=== PATIENT | male | born 1945 | race Caucasian/White ===

== ENCOUNTER → 2018-10-28 10:55 | Outpatient (CLI) | payer MEDICARE, OTHER, SELFPAY ==
--- NOTE | 2018-10-30 12:14 | PM.PFT.1 ---
Pulmonary Function Test Referral & Results Date Patient Seen: 10/28/18 Requesting provider: Anais Velasquez Results: The spirometry demonstrates an FVC of 3.47 L which is 60% of predicted. The FEV1 was measured at 2.81 L which is 66% of predicted. The FEV1/FVC ratio was 81 which is 111% of predicted. Following the administration of bronchodilator there was a 37% improvement in FEF 25-75%. Lung volumes show an SVC of 3.68 L which is 64% of predicted. The diffusing capacity was measured at 24.55 which is 56% of predicted. No hemoglobin value was provided, so no correction for potential anemia could be made, if appropriate. The maximum voluntary ventilation was normal Interpretation: This study demonstrates some element of obstructive lung disease based on reduction FEV1 although FEV1/FVC ratio remains normal. There is limited evidence of benefit following bronchodilator, particularly small airway flow based on improvement in FEF 25-75% There is also moderate restrictive lung disease based on reduction SVC There is also a significant reduction in diffusing capacity suggesting significant disease at the capillary alveolar level Overall this is consistent with an interstitial type lung disease with significant restriction and reduced DLCO
== END ==
PROVIDERS: PCP Family Medicine; Visit Provider Internal Medicine
DX: R06.09 Other forms of dyspnea (principal)
CPT/HCPCS: 94060; 94729

== ENCOUNTER → 2020-08-05 11:58 | Outpatient (CLI) | payer MEDICARE, OTHER, SELFPAY ==
[2020-08-05 12:49] LABS: COVID19 -Nasal RAPID Negative (Negative)
== END ==
PROVIDERS: PCP Family Medicine; Visit Provider Physician Assistant
DX: Z01.812 Encounter for preprocedural laboratory examination (principal); Z20.822 Contact with and (suspected) exposure to COVID-19
CPT/HCPCS: 87635

== ENCOUNTER 2020-08-07 06:38 | Inpatient (IN) | payer MEDICARE, OTHER, SELFPAY ==
[2020-07-31 07:23] VITALS: BMI 40.9
[2020-08-07] VITALS (18 sets, daily range): BP systolic 81–158; BP diastolic 58–99; PULSE 72–122; RESP 8–18; TEMP 35.7–36.6; O2SAT 90–99; BMI 42.0
--- NOTE | 2020-08-07 | DI.RAD.S_ITS ---
PROCEDURE: XR LUMBAR SPINE 2-3V INDICATIONS: L3-4, L4-5 TLIF TECHNIQUE: 2 views of the lumbar spine were acquired. COMPARISON: None. FINDINGS: Bones: Spot fluoroscopic intraoperative images demonstrating L3-L4 and L4-L5 posterior spinal fixation with interbody cage grafts. Hardware appears grossly intact. There is expected alignment. Soft tissues: Overlying bowel gas pattern is normal. No suspicious soft tissue calcifications. IMPRESSION: Expected intraoperative appearance as above Dictated by: Olvin Villela M.D. on 08/07/2020 at 14:28 Approved by: Olvin Villela M.D. on 08/07/2020 at 14:28
[2020-08-07] MEDS: LACTATED RINGERS 1,000 ML 42 ML IV ×2 (07:39→11:28)
--- NOTE | 2020-08-07 07:42 | PM.PREOP ---
Pre-operative Note COVID-19 COVID-19 status: Negative Result date/Date tested (Pos, Neg/Pending): 08/05/20 Interval Note History & Physical reviewed/Exam performed by Physician: Yes Changes to H&P: No
[2020-08-07] MEDS: CEFAZOLIN 1 GM VIAL 2 GM IV ×3 (08:00→23:54)
--- NOTE | 2020-08-07 08:28 | SUR.OPER ---
Prone on spine table, head in foam head support, padded chest and pelvic supports, gel pad at knees, lower legs supported by pillows; nipples, genitalia and toes free of pressure, arms secured on foam padded arm boards at <90 degrees abduction. Tape over blanket at thigh secured to table.Multiple gels pads to patients flanks and legs to reduce pressure. 1.5 inch skin tear to right groin noted after patient positioned in prone position. Dr. Henry aware.ABD dressing to area.
[2020-08-07] MEDS: BUPIVACAINE LIPOSOME 266 MG/20 ML VIAL INJ (08:37)
[2020-08-07] MEDS: BUPIVACAINE 0.25% (PF) VIAL 30 ML INJ (08:37)
[2020-08-07] MEDS: ACETAMINOPHEN IV 1,000 MG/100 ML VIAL 400 MG IV (09:45)
--- NOTE | 2020-08-07 13:40 | P.OP_ITS ---
Operative Date/Time/Diagnoses Date of procedure: 08/07/20 Time of procedure: 08:05 Pre-op diagnosis: 1. Spinal stenosis 2. Neurogenic claudication Post-op diagnosis: same Procedure & Clinicians Procedure: 1. L3-4, L4-5 Postero-lateral and posterior interbody fusion 2. L3-4, L4-5 interbody cage placement. 3. L3-4, L4-5 decompressive laminectomy with bilateral facetecomies 4. L3-4, L4-5 Posterior segmental instrumentation 5. Willis of bone marrow from iliac crest 6. Utilization of microsurgical technique and operating microscope Same procedure as scheduled: Yes Indications: Patient has been having chronic back pain and worsening lumbar radiculopathy. Patient failed multiple conservative management with worsening pain weakness and numbness in her lower extremity. Patient has been having difficulty performing activity of daily living. After discussing risks benefits of treatment options, patient elected proceed with surgery. Surgeon: Cassidy Henry Hull Outfit Supervisor: Polo Holden Click Yes if Unassisted: No Operative Notes Closure Type: primary Specimen(s): none sent Prosthetic devices, grafts, tissues, transplants, or devices: Globus revolve s crews, Rise cages Applied: catheter Estimated Blood Loss (mL): 150 Blood products transfused: none Procedure in detail: Patient was seen in the preoperative area. Risks and benefits of the surgery was discussed with the patient. Informed consent was obtained from the patient and placed in the chart. Surgical site was marked. Patient was taken to the operative room. General anesthesia was administered. Prophylactic antibiotic was given to the patient less than 30 min before the incision was made. Patient was placed into a prone position on the Anthony table. Patient's back was then prepped and draped in the sterile fashion. Time- out was performed at this time. Using AP and lateral C-arm imaging the interval between L3-4, L4-5 was identified and marked on patient's back. A 2 inch incision 2 in from midline was made on the left side first. The fascia was incised in line with skin incision. Globus MARS retractors was placed inside the incision and docked onto the L3 and L4 lamina. Using microsurgical technique and operating microscope, a L3 and L4 laminectomy and L3-4, L4-5 facetectomy was performed using a Kerrison rongeur. The patient was found have severe central and neural foramen stenosis which was fully decompressed off after the laminectomy and facetectomy was completed at both levels. The disc space at L3-4, L4-5 was identified. And a total diskectomy was performed at L3-4, L4-5 level. The endplates were decorticated using a rasp and shaver. The total diskectomy and decortication was performed at L3-4, L4-5 level in order to to accomplish a L3-4, L4-5 fusion. The local bone from the laminectomy and facetectomy was saved for local bone grafting. After the total diskectomy and decortication was completed, Trifecta bone graft material was combined with local bone that was harvested earlier. At this time, a separate skin is incision was made over the iliac crest. A Jamshidi needle was inserted into the iliac crest through a separate skin incision. 5 cc of bone marrow aspiration was obtained through the separate skin incision using a Jamshidi needle from the iliac crest. The bone marrow aspiration was combined with local bone and the Trifecta bone grafting material. The bone grafting material was placed into the L3-4, L4-5 interbody space along with two cages, one expandable cage at each level. The cages were expanded to their maximum height using the torque limiting screwdriver. At this time a mirror image incision was made on the right side. The fascia was incised in line with the skin incision. Globus MARS retractor was inserted and docked onto the L3-4, L4-5 posterolateral gutter. Using the power drill, posterior-lateral decortication was performed at L3-4, L4-5 level until bleeding cortical bone was identified. The remaining bone grafting material was placed into the L3-4, L4-5 posterior lateral gutter he order to accomplish posterolateral fusion at the L3-4, L4-5 levels. Using the double C-arm technique, pedicle screws were placed into the L3, L4, L5 pedicles bilaterally. This was done by placing the Jamshidi needle into the pedicles, then placing the guidewires over the Jamshidi needle, and finally placing the cannulated screws over the guidewires bilaterally. After the pedicle screws were placed, 2 titanium rods was locked into the heads of the pedicle screws using locking caps and torque limiting screwdriver. Total 6 pedicles screws were placed. After all the hardware was placed, and confirmed with AP and lateral C-arm imaging, the wound was then irrigated with sterile normal saline and packed with Ray-Andrzej gauze for 3 min to accomplish hemostasis. After the gauze was removed the deep fascia was closed with #1 Vicryl suture. The subcutaneous layer was closed with 2-0 Vicryl. The skin was closed with skin wilner. Patient tolerated the procedure well. There were no complications. Complications: none Post-operative Condition: stable Disposition: PACU Plan for aftercare: Admit to inpatient hospital
--- NOTE | 2020-08-07 13:52 | SUR.PHASEI ---
Received to PACU after general anesthesia. Oral airway in place. No further airway assistance required. Report from ANDRES Burleson and Dr Hines.
[2020-08-07] MEDS: SODIUM CHLORIDE 0.9% 1,000 ML 100 ML IV (14:57)
--- NOTE | 2020-08-07 15:07 | PC.NURSE ---
Pt to floor from PACU @ 1445; very sleepy, but A&O X 4; c/m/s positive to BLLEs; foot scds and CPAP active; RA=94%; mild hypotension 96/60; IV fluids infusing; call light within reach
--- NOTE | 2020-08-07 15:45 | PT-IP ANOTE ---
Received PT orders and reviewed chart. Per RN, pt has been quite groggy and hypotensive since arriving on the floor. Pt not yet ready for PT assessment. Will follow up morning of 08/08.
[2020-08-07] MEDS: METFORMIN 850 MG TABLET PO ×2 (18:16→22:31)
[2020-08-07] MEDS: INSULIN LISPRO 100 UNIT/ML 3ML VIAL SUBCUT ×2 (18:17→21:49)
[2020-08-07] MEDS: ATORVASTATIN 20 MG TABLET 80 MG PO (18:29)
[2020-08-07] MEDS: DOCUSATE 100 MG CAPSULE PO (21:16)
[2020-08-07] MEDS: SENNOSIDES 8.6 MG TABLET 17.2 MG PO (21:17)
[2020-08-07] MEDS: FINASTERIDE 5 MG TABLET PO (21:17)
[2020-08-07] MEDS: METOPROLOL ER 50 MG TABLET PO (21:17)
[2020-08-07] MEDS: INSULIN GLARGINE 100 UNIT/ML 3ML PEN 51 UNIT SUBCUT (21:48)
[2020-08-08] VITALS (7 sets, daily range): BP systolic 99–127; BP diastolic 55–72; PULSE 79–106; RESP 16–26; TEMP 36.3–37.7; O2SAT 95–98
[2020-08-08] MEDS: SODIUM CHLORIDE 0.9% 1,000 ML 100 ML IV (01:08)
[2020-08-08] MEDS: hydrOXYzine pamoate 25 MG CAPSULE PO (01:49)
--- NOTE | 2020-08-08 01:52 | PC.NURSE ---
patient is alert and oriented. [place] but has no hearing aids. Breath sounds CTA with RA sat of 97%; gets SOB with exertion which he states is his normal. Using home CPAP for sleep. HRR slightly tachy at 101 bpm. Denies nausea. BT present but not passing flatus as yet. Indwelling catheter is patent; urine is clear, yellow. Is sitting up in chair and able to move self. Stands up with 1-2 assist + walker. Dressings to back intact with bright red drainage leaking from right dressing; reinforced. Numbness to left anterior/lateral thigh. Does have chronic neuropathy in bilateral LE toe to knee and bilateral hands. Wearing bilateral foot SCD's. Denies pain. Fall risk score is high and chair alarm is on.
[2020-08-08 06:26] LABS: Hematocrit 33.1 % (41-53); Hemoglobin 11.1 g/dL (13.5-17.5)
[2020-08-08] MEDS: INSULIN GLARGINE 100 UNIT/ML 3ML PEN 51 UNIT SUBCUT ×2 (07:52→20:33)
[2020-08-08] MEDS: INSULIN LISPRO 100 UNIT/ML 3ML VIAL SUBCUT ×4 (07:53→20:34)
[2020-08-08] MEDS: LORATADINE 10 MG TABLET PO (08:20)
[2020-08-08] MEDS: METOPROLOL ER 50 MG TABLET PO ×2 (08:20→20:32)
[2020-08-08] MEDS: DOCUSATE 100 MG CAPSULE PO ×2 (08:20→20:32)
[2020-08-08] MEDS: SPIRONOLACTONE 25 MG TABLET 12.5 MG PO (08:20)
[2020-08-08] MEDS: GLIMEPIRIDE 2 MG TABLET 4 MG PO (08:20)
[2020-08-08] MEDS: METFORMIN 850 MG TABLET PO ×3 (08:20→20:32)
[2020-08-08] MEDS: LOSARTAN 50 MG TABLET PO (08:20)
--- NOTE | 2020-08-08 09:16 | PC.NURSE ---
Assess- Patient is alert and oriented x3, he is working with physical therapy now and is going to need assistance of two staff members to help get him out of the chair. He has a dressing to his lower back that is intact, some bloody drainage. [place] present and patient is putting out yellow urine. He states that he is having some numbness to his r.upper thigh and this is new to him after surgery, patient is diabetic and has neuropathy present. VSS and he denies pain in his lower back. Patient has hemosydian staining to his bilater lower extremities with 1+edema, legs are shiny and puffy. Patient given his dieuretic medication.
--- NOTE | 2020-08-08 09:44 | PT.IIE ---
Current Diagnoses Morbid (severe) obesity due to excess calories (08/07/20) Spinal stenosis, lumbar region with neurogenic claudication (08/07/20) Surgery Performed Operation Date: 08/07/20 07:45 Actual Procedures p L3-4, L4-5, L5-S1 TLIF w. posterior instrumentation(Not Applicable) - Cassidy Henry MD Surgical History (Last Updated 07/31/20 @ 09:34 by Nila Villavicencio RN) H/O cardiac radiofrequency ablation (05/17/20) History of loop recorder (~05/17/20) History of vasectomy Hx of bilateral cataract extraction Hx of eye surgery Hx of knee surgery Medical History (Last Updated 07/31/20 @ 09:27 by Nila Villavicencio RN) Cardiomyopathy Cellulitis (~03/2018) Diabetes Dry skin Dyslipidemia Dyspnea Former smoker HTN (hypertension) Left ventricular hypertrophy Neuropathy NSVT (nonsustained ventricular tachycardia) DIDEIR (obstructive sleep apnea) Pancreatitis Pedal edema PVC's (premature ventricular contractions) TIA (transient ischemic attack) Physical Therapy Inpatient Evaluation/Re-Eval M1 PT/OT-IP Prior Functional Status Start: 08/08/20 08:23 Freq: NEEDED Status: Active Protocol: Document 08/08/20 09:44 AW (Rec: 08/08/20 10:11 AW [id number]) Medical Review Prior Functional Status Medical History Reviewed Yes Communication Pt is [place]. He is able to make his needs known. Mobility and Gait Pt uses a SPC at/around his home and a 4WW for longer community distances. He has peripheral neuropathy affecting both feet and hands and reports he prefers to wear shoes. Activities of Daily Living and IADL's Independent with all ADL and IADL's. Pt wears slip on shoes and uses a homemade button hook for buttoning. Pt drives. He manages his medications without assist. Prior Functional Level (Other details) Pt reports one fall in the past year from which he was able to recover independently. Social History Household Members none Living Arrangements House Number of Floors (Floors) One Floor Number of Stairs To Enter/Railing? 1 platform step to enter with no railing. Home Environment High Toilet,Walk in Shower Home Equipment Front Wheel Walker,Four Wheel Walker,Straight Cane,Shower Seat with Backrest,Lift Recliner Additional Social History Comment Pt has an adjustable bed. He has suction cup grab bars in his shower but does not trust them. He lives alone. His daughter is a [employer] and she plans to take pt home from the hospital and stay with him for a few days. Pt's sister is retired and may also be available to assist. M2 PT-IP Current Condition Start: 08/08/20 08:23 Freq: NEEDED Status: Active Protocol: Document 08/08/20 09:44 AW (Rec: 08/08/20 10:11 AW [id number]) Physical Therapy Current Condition Current Condition Evaluation Date 08/08/20 Treatment Diagnosis s/p L3-S1 TLIF; impaired mobility and gait Onset Date 08/07/20 Precautions Lumbar Precautions Log Roll,No Twisting,Limit Bending,Lifting Restriction of 10 lbs,Gait Belt above Incisional Area Weight Bearing Status Weight Bearing Status Weight Bear as Tolerated M3 PT-IP Subjective Start: 08/08/20 08:23 Freq: NEEDED Status: Active Protocol: Document 08/08/20 09:44 AW (Rec: 08/08/20 10:11 AW [id number]) Subjective Physical Therapy Visit Type Type Initial Evaluation Visit Start Time 08:36 Visit Stop Time 09:20 Total Visit Minutes 44 Physical Therapy Visit Comments Patient Comments Pt stayed up in the chair most of the night and states he did not sleep. He is willing to work with PT Patient Goals Return home with family assist . Therapy Pain Assessment Pain When Pain Assessed During Mobility Pain Present Pain Present Pain Reported Location low back Scale Used not quantified Description With Movement Pain Management Techniques Distraction,Re-positioning, Timing of Activity with Medications M4 PT-IP Mobility and Gait Start: 08/08/20 08:23 Freq: NEEDED Status: Active Protocol: Document 08/08/20 09:44 AW (Rec: 08/08/20 10:11 AW [id number]) PT-Transfer Assessment Sit to and From Stand Sit to and from Stand Maximum Assistance,1 Person Assistance,2 Person Assistance ,Use of Upper Extremities Equipment Transfer Assistive Device Gait Belt,Front Wheeled Walker Orthotic/Prosthetic Devices or Brace: No Transfers Transfer Destination Chair Transfer Technique Stand Step Pivot Transfer Ability Level of Assist Moderate Assistance,1 Person Assistance,Use of Upper Extremities Comments Mobility Comments Pt was sitting up in the chair as PT arrived. With heavy max assist, he stood from the chair and used the walker to ambulate around the room ~20 feet CGA. He declined bed mobility assessment, preferring to return to the chair. PT left and returned with larger chair and bariatric commode for pt, who is 6'6 with BMI 42. [employer] provided assist for max 2PA sit to stand. Pt ambulated to the larger chair with FWW CGA and transferred with fair control of descent. Pt was positioned with call light and tray table in reach. Chair alarm was armed for safety. Gait Assessment Gait Gait Assistance Required: Contact Guard Assist Distance (Feet) 20 Able to Maintain Weight Bearing Status Yes During Gait Assistive Devices Assistive Device Gait Belt,Front Wheeled Walker Orthotic/Prosthetic Devices or Brace: No Gait Deviations General Gait Pattern Antalgic,Decreased Stride Length,Decreased Feet Clearance,Flexed Trunk,Wide Based Gait Factors Limiting Gait Function Factors Limiting Gait Function Decreased Activity Tolerance, Decreased Sensation,Decreased Strength,Pain,Poor Balance Comments Gait Comments Pt tended to push the walker too far in front of his trunk but responded well to cues for correction. Pt states he has tall/wide FWW at home. Stair Climbing Assessment Comments Stair Climbing Comments Not assessed. PT-Balance Assessment Sitting Balance and Reactions Static Sitting Balance Ability Good Dynamic Sitting Balance Ability Good Standing Balance and Reactions Static Standing Balance Ability Good Dynamic Standing Balance Ability Fair Device Used FWW M5 PT-IP Objective Assessments Start: 08/08/20 08:23 Freq: NEEDED Status: Active Protocol: Document 08/08/20 09:44 AW (Rec: 08/08/20 10:11 AW [id number]) Orientation Orientation/Cognition Level of Alertness Alert Orientation Name,Day of Week,Place, Situation Language Function Ability Hard of Hearing Safety Awareness Decreased Safety Awareness Memory Description No Deficits Noted Gross Range of Motion Lower Extremity ROM Assessment Within Functional Limits Strength Lower Extremity Strength Assessment Bilaterally Impaired Hip 3+/5 Knee 4/5 Ankle R 4+/5; L 4-/5 Comments Strength Comments Left ankle more affected by neuropathy at baseline. Sensation Assessment Sensation Gross Sensation Right UE Impaired,Left UE Impaired,Right LE Impaired, Left LE Impaired Light Touch Impaired Proprioception (Position) Impaired Sensation Description Numbness,Tingling Comments Sensation Comments Pt reports chronic peripheral neuropathy affecting bilateral hands and feet. He states his left anterior and lateral thigh is numb which is new since surgery. Muscle Tone Muscle Tone WNL Yes Other Assessments Other Other Assessments BP WNL before and after assessment. M6 PT-IP Treatment Start: 08/08/20 08:23 Freq: NEEDED Status: Active Protocol: Document 08/08/20 09:44 AW (Rec: 08/08/20 10:11 AW [id number]) Physical Therapy Treatment Education Education Provided Precautions,Weight Bearing Status,Post-Op Packet,Safety Other Treatments Other Treatment Performed Educated pt on PT plan of care , post op precautions, and safe use of FWW. M7 PT-IP Assessment and Plan Start: 08/08/20 08:23 Freq: NEEDED Status: Active Protocol: Document 08/08/20 09:44 AW (Rec: 08/08/20 10:11 AW [id number]) PT Summary Assessment and Plan Potential Rehabilitation Potential Good Status of Condition at Evaluation Evolving Summary Impairments Pain,ROM,Strength,Balance, Sensation,Bed Mobility, Transfers,Gait,Activity Tolerance Assessment Summary Sam is a 75 yo man seen for PT evaluation on POD1 following L3-S1 TLIF. He is modified independent with cane and 4WW at baseline. On evaluation, pt required max assist of 1-2 people for sit to stand, CGA with FWW for limited ambulation in the room . Pt presents with B LE weakness and L LE numbness affecting his mobility independence. His home is well -equipped and pt will have assist from his [employer] daughter for at least a few days at discharge. PT will continue to assess for safe discharge plan but anticipates pt will progress during his hospital stay and be safe to discharge home with assist. Pt would also benefit fro home health PT. Goals Bed Mobility Goal Standby Assistance Transfer Goal Standby Assistance,Front Wheeled Walker Gait Goal Standby Assistance,Front Wheel Walker Gait Distance 100 Other Goals - up/down platform step with FWW CGA Days to Meet Goals 5 Frequency of Treatment Frequency Of Treatment Twice a Day Treatment Plan Physical Therapy Treatment Plan Bed Mobility Training,Transfer Training,Gait Training, Therapeutic Exercise,Balance Retraining,Post Op Education, Discharge Planning,Hot or Cold Pack Other Recommendations and Next Treatment sit to stand, transfers, Focus progress gait training with FWW Precautions Lumbar Precautions Log Roll,No Twisting,Limit Bending,Lifting Restriction of 10 lbs,Gait Belt above Incisional Area Recommendations To Nursing Amount of Assist Needed 2 Person Assist Discharge Recommendations PT Discharge Recommendations Home with Assistance,Home with / Assist Available,Home Health Transportation Needs at Discharge Private Vehicle
--- NOTE | 2020-08-08 12:10 | OT.IP.EVAL ---
Current Diagnoses Morbid (severe) obesity due to excess calories (08/07/20) Spinal stenosis, lumbar region with neurogenic claudication (08/07/20) Surgery Performed Operation Date: 08/07/20 07:45 Actual Procedures p L3-4, L4-5, L5-S1 TLIF w. posterior instrumentation(Not Applicable) - Cassidy Henry MD Past Medical History (Last Updated 07/31/20 @ 09:27 by Nila Villavicencio, RN) Cardiomyopathy Cellulitis (~03/2018) Diabetes Dry skin Dyslipidemia Dyspnea Former smoker HTN (hypertension) Left ventricular hypertrophy Neuropathy NSVT (nonsustained ventricular tachycardia) DIDIER (obstructive sleep apnea) Pancreatitis Pedal edema PVC's (premature ventricular contractions) TIA (transient ischemic attack) Surgical History (Last Updated 07/31/20 @ 09:34 by Nila Villavicencio RN) H/O cardiac radiofrequency ablation (05/17/20) History of loop recorder (~05/17/20) History of vasectomy Hx of bilateral cataract extraction Hx of eye surgery Hx of knee surgery Occupational Therapy Inpatient Evaluation/Re-Eval M1 PT/OT-IP Prior Functional Status Start: 08/08/20 08:23 Freq: NEEDED Status: Active Protocol: Document 08/08/20 11:41 [facility] (Rec: 08/08/20 13:15 [facility] [id number]) Medical Review Prior Functional Status Medical History Reviewed Yes Communication Pt is ASA'CARSARMIUT. He is able to make his needs known. Mobility and Gait Pt uses a SPC at/around his home and a 4WW for longer community distances. He has peripheral neuropathy affecting both feet and hands and reports he prefers to wear shoes. Activities of Daily Living and IADL's Independent with all ADL and IADL's. Pt wears slip on shoes and uses a homemade button hook for buttoning. Pt drives. He manages his medications without assist. Prior Functional Level (Other details) Pt reports one fall in the past year from which he was able to recover independently. Social History Household Members none Living Arrangements House Number of Floors (Floors) One Floor Number of Stairs To Enter/Railing? 1 platform step to enter with no railing. Home Environment High Toilet,Walk in Shower Home Equipment Front Wheel Walker,Four Wheel Walker,Straight Cane,Shower Seat with Backrest,Lift Recliner Additional Social History Comment Pt has an adjustable bed. He has suction cup grab bars in his shower but does not trust them. He lives alone. His daughter is a PRN PHYSICAL THERAPIST and she plans to take pt home from the hospital and stay with him for a few days. Pt's sister is retired and may also be available to assist. Pt states has a bidet but does not have it installed yet. M2 OT-IP Current Condition Start: 08/08/20 12:52 Freq: Status: Active Protocol: Document 08/08/20 11:41 [facility] (Rec: 08/08/20 13:15 [facility] [id number]) Occupational Therapy Current Condition Current Condition Evaluation Date 08/08/20 Treatment Diagnosis Spinal Stenosis, s/p L3-S1 TLIF, decreased mobility Diagnosis Onset Date 08/07/20 Post Operative Precautions Lumbar Precautions Log Roll,No Twisting,Limit Bending,Lifting Restriction of 10 lbs,Gait Belt above Incisional Area M3 OT- IP Subjective and Pain Start: 08/08/20 12:52 Freq: Status: Active Protocol: Document 08/08/20 11:41 [facility] (Rec: 08/08/20 13:15 [facility] [id number]) OT- Subjective Occupational Therapy Visit Type Type Initial Evaluation Visit Start Time 11:41 Visit Stop Time 12:10 Total Visit Minutes 29 Occupational Therapy Visit Comments Patient Comments Pt agreed to get up for Ot eval. Patient/Caregiver Goals TO go home. OT Pain Assessment Pain When Pain Assessed At Rest Pain Present Pain Present Denied Pain M4 OT- IP ADL's Start: 08/08/20 12:52 Freq: Status: Active Protocol: Document 08/08/20 11:41 [facility] (Rec: 08/08/20 13:15 [facility] [id number]) OT [id number] Comments OT Self-Feeding Comments NOt at meal time. OT ADL-Grooming Comments OT Grooming Comments NOt performed. OT ADL-Oral Care Comments Oral Care Comments Educated to pt to best spit into a cup to best follow his back precautions. Pt states since his FWW in unable to fit the bathroom doorway, pt sit in his rolling office chair and wheels in to perform his grooming needs while seated. OT ADL-Dressing General Eval Lower Body Dressing Ability Maximum Assistance Comments OT Dressing Comments Pt has zip up boots and may have to modify the zipper with loops so able to use a hedge fund trader to assist pt to daxa/ doff his boots. Pt's will need assist for socks otherwise may have to order a wide sock aid. OT ADL-Toileting General Evaluation Toileting Ability Total Assistance Comments OT Toileting Comments [place] in place. Pt states to have his neighbor install the bidet for him. OT ADL-Bathing Comments OT Bathing Comments NOt performed. M5 OT- IP IADL's Start: 08/08/20 12:52 Freq: Status: Active Protocol: Document 08/08/20 11:41 [facility] (Rec: 08/08/20 13:15 [facility] [id number]) OT-Instrumental Activities of Daily Living Home Safety Awareness Awareness of Need for Assistance at Home Decreased Awareness Home Safety Comments Pt states to have his daughter stay with him for a few day initially. Medication Management Medication Management Comments Pt's daughter to assist pt intially. Meal Preparation Meal Preparation Caregiver Provides Assist Interstate Planner Interstate Planner Caregiver Provides Assist M6 OT- IP Functional Cognition Start: 08/08/20 12:52 Freq: Status: Active Protocol: Document 08/08/20 11:41 [facility] (Rec: 08/08/20 13:15 [facility] [id number]) Cognitive Factors Limiting Selfcare Function Cognitive Ability Level of Alertness Alert Patient Orientation Name,Place,Situation Attention Span Ability Capable of Focused Attention, Capable of Sustained Attention Ability to Follow Commands Able to Follow One Step Commands Memory Description No Deficits Noted Safety Awareness Decreased Ability to Apply Precautions,Underestimates Need for Assistance Cognitive Comments Cognitive Assessment Comments Pt feels that he is able to do all ADl's and mobility as prior to surgery he was able to care for himself, and not remembering that now he will have back precautions to recall and incorporate especially if putting on his boots. OT- Vision and Hearing OT- Hearing Assessment OT- Hearing Assessment WFL OT- Vision Assessment Vision History Cataracts Visual Acuity WFL M7 OT- IP Mobility and Balance Start: 08/08/20 12:52 Freq: Status: Active Protocol: Document 08/08/20 11:41 [facility] (Rec: 08/08/20 13:15 [facility] [id number]) OT-Transfer Assessment Sit to and From Stand Sit to and from Stand Maximum Assistance,1 Person Assistance Comments Mobility Comments Pt states use of lift recliner to sleep in at home. Sit to stand MAX A X1 to FWW. Pt just wanting to stand and not wanting to transfer or move at this time. OT- Balance Assessment Sitting Balance and Reactions Static Sitting Balance Ability Good Dynamic Sitting Balance Ability Fair Standing Balance and Reactions Static Standing Balance Ability Fair M8 OT- IP Objective Assessments Start: 08/08/20 12:52 Freq: Status: Active Protocol: Document 08/08/20 11:41 [facility] (Rec: 08/08/20 13:15 [facility] [id number]) OT Gross Range of Motion Upper Extremity Range of Motion Assessment Within Functional Limits OT Strength Upper Extremity Strength Assessment Within Functional Limits OT-Muscle Tone Assessment Muscle Tone WNL Yes OT Sensation Assessment Comments Summary Comments Left thigh decreased sensation anteriorly and laterally. M9 OT- IP Assessment and Plan Start: 08/08/20 12:52 Freq: Status: Active Protocol: Document 08/08/20 11:41 [facility] (Rec: 08/08/20 13:15 [facility] [id number]) OT Summary Assessment and Plan Potential Rehabilitation Potential Good Analytic Complexity at Evaluation Low Summary OT Impairments Balance,Sensation,Functional Cognition,Functional Mobility, Grooming,Dressing,Toileting, Bathing,Toilet Transfers, Shower Transfers,Activity Tolerance Progress Towards Goals Slow Progress due to Medical Issues,Slow Progress due to Activity Tolerance Assessment Summary Pt low complexity and main barrier is step at home, needing reminders for back precautions, decreased strength and endurance and looking to go home when medically stable. Pt's daughter to stay and assist him at home initially for a few day. Goals Grooming Goal Independent Dressing Goal Independent Toileting Goal Independent Bathing Goal Independent Toilet Transfer Goal Independent Shower Transfer Goal Independent Patient/Caregiver Education Goal Demonstrate Post-Op Precautions,Caregiver Independent Assisting Patient Days to Meet Goals 7 Frequency of Treatment Frequency Of Treatment Once a Day Treatment Plan OT Treatment Plan ADL Training,Functional Cognition Training,Functional Mobility,Patient/Family Education,Discharge Planning Other Treatment Recommendations and Next Shower Treatment Focus Discharge Recommendations OT Discharge Recommendations Home with Assistance Home Equipment Needs Tub bench Transportation Needs at Discharge Private Vehicle
--- NOTE | 2020-08-08 13:48 | PT.IPTN ---
Current Diagnoses Morbid (severe) obesity due to excess calories (08/07/20) Spinal stenosis, lumbar region with neurogenic claudication (08/07/20) Surgery Performed Operation Date: 08/07/20 07:45 Actual Procedures p L3-4, L4-5, L5-S1 TLIF w. posterior instrumentation(Not Applicable) - Cassidy Henry MD Physical Therapy Treatment Note M2 PT-IP Current Condition Start: 08/08/20 08:23 Freq: NEEDED Status: Active Protocol: Document 08/08/20 09:44 [facility] (Rec: 08/08/20 10:11 [facility] [id number]) Physical Therapy Current Condition Current Condition Evaluation Date 08/08/20 Treatment Diagnosis s/p L3-S1 TLIF; impaired mobility and gait Onset Date 08/07/20 Precautions Lumbar Precautions Log Roll,No Twisting,Limit Bending,Lifting Restriction of 10 lbs,Gait Belt above Incisional Area Weight Bearing Status Weight Bearing Status Weight Bear as Tolerated M3 PT-IP Subjective Start: 08/08/20 08:23 Freq: NEEDED Status: Active Protocol: Document 08/08/20 13:23 [facility] (Rec: 08/08/20 15:30 SP [id number]) Subjective Physical Therapy Visit Type Type Treatment Note Visit Start Time 13:23 Visit Stop Time 13:48 Total Visit Minutes 25 Number of BUSINESS INFORMATION ANALYST Visits 1 Physical Therapy Visit Comments Patient Comments Pt was reclined in chair when arrived, willing to work with therapy. Patient Goals Return home with family assist . Therapy Pain Assessment Pain Present Pain Present Pain Reported Location low back Intensity 5 Scale Used Numeric (0 - 10) Description With Movement Pain Management Techniques Re-positioning,Timing of Activity with Medications M4 PT-IP Mobility and Gait Start: 08/08/20 08:23 Freq: NEEDED Status: Active Protocol: Document 08/08/20 13:23 [facility] (Rec: 08/08/20 15:30 [facility] [id number]) PT-Bed Mobility Assessment Rolling Type of Rolling Log Rolling,Bilateral Level of Assist Standby Assistance Supine to Sit Supine to Sit Minimal Assistance,Bedrails Sit to Supine Sit to Supine Minimal Assistance,Bedrails Scooting Scooting to Edge of Bed Standby Assistance PT-Transfer Assessment Sit to and From Stand Sit to and from Stand Minimal Assistance,1 Person Assistance,Use of Upper Extremities Equipment Transfer Assistive Device Gait Belt,Front Wheeled Walker Orthotic/Prosthetic Devices or Brace: No Transfers Transfer Destination Bed,Chair Transfer Technique pt ambulated using fWW Transfer Ability Level of Assist Contact Guard Assistance, Minimal Assistance,1 Person Assistance,Use of Upper Extremities Comments Mobility Comments Pt completed scoot to EOchair SBA, sit<> stand Min A initially heavy BUe WB on chair arms. Pt able to walk around room x3 laps then lateral and side step to EOB with cues for reaching back for slow descent onto bed. Completed sit>L sidelying with Ameya for RLE onto bed then cues for log roll onto back, Pt unable to center self in bed, said sleeps on his side but plans to sleep in recliner at home for now. L sidelying> sitting Mod A x1 for trunk righting, scoot to EOB sBA, Sit>stand cued 1 UE on FWW and push from bed other UE Min A, SPT using FWW to chair and good reach back slow descent into chair. Pt was able to self recline leg and back in chair. Pt had alarm donned and call light and all needs in reach before left. Discussed with pt would like to perform caregiver training tomorrow with sister, who will assist him at home to meet for tx at 11am, pt will coordinate. Gait Assessment Gait Gait Assistance Required: Contact Guard Assist,Minimum Assistance Distance (Feet) 60 Able to Maintain Weight Bearing Status Yes During Gait Assistive Devices Assistive Device Gait Belt,Front Wheeled Walker Orthotic/Prosthetic Devices or Brace: No Gait Deviations General Gait Pattern Antalgic,Decreased Stride Length,Decreased Feet Clearance,Flexed Trunk,Wide Based Gait Factors Limiting Gait Function Factors Limiting Gait Function Decreased Activity Tolerance, Decreased Sensation,Decreased Strength,Pain,Poor Balance Comments Gait Comments Pt tends to push walker little to far in front of trunk, improved standing posture self corrections as distance progressed using FWW, low Min> CGA. Stair Climbing Assessment Comments Stair Climbing Comments Not assessed, will assess next tx- 1 PF step with FWW. PT-Balance Assessment Sitting Balance and Reactions Static Sitting Balance Ability Good Dynamic Sitting Balance Ability Fair Standing Balance and Reactions Static Standing Balance Ability Fair Dynamic Standing Balance Ability Fair Device Used FWW M5 PT-IP Objective Assessments Start: 08/08/20 08:23 Freq: NEEDED Status: Active Protocol: Document 08/08/20 09:44 [facility] (Rec: 08/08/20 10:11 AW [id number]) Orientation Orientation/Cognition Level of Alertness Alert Orientation Name,Day of Week,Place, Situation Language Function Ability Hard of Hearing Safety Awareness Decreased Safety Awareness Memory Description No Deficits Noted Gross Range of Motion Lower Extremity ROM Assessment Within Functional Limits Strength Lower Extremity Strength Assessment Bilaterally Impaired Hip 3+/5 Knee 4/5 Ankle R 4+/5; L 4-/5 Comments Strength Comments Left ankle more affected by neuropathy at baseline. Sensation Assessment Sensation Gross Sensation Right UE Impaired,Left UE Impaired,Right LE Impaired, Left LE Impaired Light Touch Impaired Proprioception (Position) Impaired Sensation Description Numbness,Tingling Comments Sensation Comments Pt reports chronic peripheral neuropathy affecting bilateral hands and feet. He states his left anterior and lateral thigh is numb which is new since surgery. Muscle Tone Muscle Tone WNL Yes Other Assessments Other Other Assessments BP WNL before and after assessment. M6 PT-IP Treatment Start: 08/08/20 08:23 Freq: NEEDED Status: Active Protocol: Document 08/08/20 13:23 SP (Rec: 08/08/20 15:30 SP [id number]) Physical Therapy Treatment Education Education Provided Precautions,Weight Bearing Status,Post-Op Packet,Safety Other Treatments Other Treatment Performed Good recall precautions, Ed provided safe use of FWW. M7 PT-IP Assessment and Plan Start: 08/08/20 08:23 Freq: NEEDED Status: Active Protocol: Document 08/08/20 13:23 [facility] (Rec: 08/08/20 15:30 SP [id number]) PT Summary Assessment and Plan Potential Rehabilitation Potential Good Status of Condition at Evaluation Evolving Summary Impairments Pain,ROM,Strength,Balance, Sensation,Bed Mobility, Transfers,Gait,Activity Tolerance Progress Towards Goals Progressing Toward Goals,Slow Progress due to Pain,Slow Progress due to Activity Tolerance Assessment Summary Pt required decrease physical assist CG- Mod A during sit<> stand using FWW, supine<>sit Min A. Pt would benefit from further skilled acute PT, will continue to assess progress, assess and caregiver training tomorrow 11am with sister, pt to coordinate. Goals Bed Mobility Goal Standby Assistance Transfer Goal Standby Assistance,Front Wheeled Walker Gait Goal Standby Assistance,Front Wheel Walker Gait Distance 100 Other Goals - up/down platform step with FWW CGA Days to Meet Goals 5 Frequency of Treatment Frequency Of Treatment Twice a Day Treatment Plan Physical Therapy Treatment Plan Bed Mobility Training,Transfer Training,Gait Training, Therapeutic Exercise,Balance Retraining,Post Op Education, Discharge Planning,Hot or Cold Pack Other Recommendations and Next Treatment bed mobiltiy, sit to stand, Focus transfers, progress gait training with FWW, 1 PF step using fWW. Precautions Lumbar Precautions Log Roll,No Twisting,Limit Bending,Lifting Restriction of 10 lbs,Gait Belt above Incisional Area Recommendations To Nursing Amount of Assist Needed 1 Person Assist Discharge Recommendations PT Discharge Recommendations Home with 24/ Assist Available,Home Health Transportation Needs at Discharge Private Vehicle
--- NOTE | 2020-08-08 14:51 | CM.DANOTE ---
DCP ASSESSMENT: Patient is a 75 year-old male admitted for L3-4, L4-5 Postero-lateral and posterior interbody fusion. PCP is Beni Collazo. Primary Payer is Medicare and [employer]. Therapy evaluation completed this am, therapy recommends home with assistance. ICT QUALITY ASSURANCE ENGINEER Student met with patient he was sitting in a chair alert and oriented. Educated patient of social work role in discharge planning. Patient reported he uses devices when ambulating: FWW, 4WW and cane. He lives at home alone and is independent with ADL?s at baseline. Patient reported his daughter Sigrid Grover who is a FLAKE CUTTER OPERATOR will be able to stay with him for a couple of days at time of D/C to help provide care and provide transportation from the hospital. His other daughter Flip is also available to help if he needs it. PLAN: Anticipate D/C home when medically stable CM Team to continue to follow. DAVIS Canas MSW Student Discharge Planning/Care Management Advanced directive, confirm from FAMILY Start: 08/07/20 14:45 Freq: Q24H Status: Active Protocol: Document 08/07/20 16:00 KJ (Rec: 08/07/20 22:38 KJ [id number]) Advance Directive, confirm on record Time 22:37 Person contacted fiordaliza Escobar received No CM Discharge Assessment Start: 08/08/20 11:59 Freq: Status: Active Protocol: Document 08/08/20 12:00 [facility] (Rec: 08/08/20 12:02 [facility] [id number]) Discharge Planning Assessment Assigned Tour Bus Driver DAVIS Warner Student Contact Information Sigrid Grover, Daughter Advance Directives? No History Provided By Patient,Medical Record Has Patient been admitted in last 30 No days? Prior Living Arrangements House Household Members none Type of transporation used prior to Relies on Others admit Independent with ADL's Yes Is patient alert and oriented? Yes Caregiver for Another No DME Already Rented / Owned FWW / Walker,Cane Discharge Plan Home Referrals Initiated None needed Whiteboard Updated in Patient Room with Yes name and ext. # of Tour Bus Driver Review Status In Process Pre-Anesthesia Assessment Start: 07/31/20 07:23 Freq: Status: Complete Protocol: Document 07/31/20 07:23 [facility] (Rec: 07/31/20 09:41 [facility] [id number]) Pre-Anesthesia Assessment PAC Comment Glucose 308, A1c 8.4%, K+ 5.3 on pre-op labs Patient Information Reviewed Via Phone Assessment Assessment Completed With Patient Diagnostic Results BMP/CMP,CBC Comment Outside labs Primary Care Provider Brayan Guzman Seen Specialist in Last 12 Months Yes Specialist Seen Accounts Officer,Orthopedist, Prototype Technician Primary Language Spanish P D Driver Required No Height 196.85 cm Weight 158.757 kg Body Mass Index (BMI) 40.9 Hearing Ability Normal Visual Assist None Dentition Type Teeth, Natural Present Barriers to Learning None Other Aids Yes: CPAP Hx Anesthesia Reactions No Hx Family Anesthesia Reaction No Hx Malignant Hyperthermia No Hx Blood Transfusions No Anesthesia Review Requested No alcohol intake current alcohol intake frequency a few times a week Smoking Status Former smoker Tobacco type cigarettes,pipe how long ago did patient quit smoking Quit 1972 Substance Use Type does not use Pain Present Pain Reported Musculoskeletal Symptoms Abnormal Gait,Back Pain, Difficulty Walking,Numbness, Tingling History of Falling (Recent or History of Yes ) Patient is completely paralyzed or No completely immobile Prosthesis or Orthotic Device Cane,Front Wheel Walker Mental Status Oriented to own ability Is patient on oxygen? No Does patient have HOWELL/SOB Yes: HOWELL Hx Sleep Apnea Yes CPAP/BIPAP use prescribed and used routinely Will Bring CPAP/BIPAP DOS Yes Currently Taking a Beta Keegan Yes: Metoprolol Can You Climb a Flight of Stairs Without Pt unsure SOB Hx Chest Pain No Hx SOB Yes Hx Syncope or Dizziness Yes: Prior to ablation Anti-Coagulant Therapy No Has a Accounts Officer Yes: Gabriel Salazar- visit 05/31/20 Cardiac Testing Yes: Echo 02/08/20, ablation Hx Pacemaker/ICD No Pacemaker Rep Required? No Cardiac Clearance Received Yes Comment Cardiac records scanned. Loop recorder implanted Diet Type At Home Regular dysphagia No Urinary Catheter Present No Hx Urinary Self Catheterization No Diabetes Yes: Checks every morning HgbA1C 8.4 Date 07/04/20 Presence of External or Internal Medical Yes: Bilat eyes, CPAP, screws Devices in right knee Have you had any close contact with No someone diagnosed with COVID-19? Marital Status Lives With none Prior Living Arrangements House Number of Floors (Floors) One Floor Support System Child/Children,Sibling(s) Does the Patient Have Assistance After Yes: Daughters and sister will Surgery assist w/care at DC Patient Discharge Plan Description Return Home Comment Pt advised 2 days length of stay per surgeon Feels Safe in Current Environment Yes Been Physically Hurt or Threatened By a No Person in Current Environment Do you have thoughts of harming yourself None or others? Are you currently considering suicide? No Do you have a plan to hurt yourself or No Plan others? Do You Have Any Spiritual Beliefs That No May Affect Your HC Choices? Do You Have Any Cultural Practices That No May Affect Your HC Choices? Comment Buddhist Who Can We Speak to About Patient's Care Family, friends Identifying Code for Release of Patient Declines to issue Information Health Care Proxy/Next of Kin Fiordaliza (sister) Health Care Proxy or [phone] Emergency Contact Name Flip (daughter) Emergency Contact Advance Directives? No Power of City Clerk No PAC Instructions Bring CPAP/BIPAP,Diabetes instructions,Durable medical equipment,Medications to take/ avoid,Nasal antibiotic,No ETOH /petroleum product on skin DOS ,NPO,Post-op transportation, Pre-surgical wash,Sensory aids ,Sturdy shoes/comfortable clothes,Do not bring valuables and remove jewelry
--- NOTE | 2020-08-08 15:43 | P.PN_ITS ---
Subjective Subjective Date Patient Seen: 08/08/20 Time Patient Seen: 15:43 Interval history: Patient states he is doing well overall and is in minimal discomfort at rest. Patient notes that his pain is exacerbated with movement. At this time he denies fever, chills, nausea, chest pain, or shortness of breath. Patient reports numbness in the lateral proximal left thigh extending distally to the knee. Exam Vital Signs (past 8 hours): - 08/08/20 08:00 08/08/20 11:57 Temperature 98.0 F 97.3 F L Pulse Rate 80 79 Respiratory Rate 16 16 Blood Pressure 127/64 99/55 L Pulse Oximetry 98 98 Oxygen Delivery Method Room Air Oxygen Flow Rate 0 Narrative Exam Narrative: 75-year-old male postop day 1. Patient is resting comfortably in room chair, is in no acute distress, is alert and oriented x3. Skin is warm and dry, and the skin surrounding the incision site is free of erythema, warmth, induration, or discharge. Decreased sensation to light touch appreciated on the lateral left thigh. Gross motor function intact. DP pulses palpated bilaterally. Ankle dorsiflexion, plantar flexion, eversion, inversion performed bilaterally without difficulty or discomfort. Calves are soft and nontender, negative Homans sign. Lower half of the legs bilaterally covered in hemosiderin staining. No other signs of DVT appreciated. Const General: cooperative, healthy appearing and comfortable Resp Effort & Inspection: normal respiratory effort and able to speak in complete s entences Skin General: no rashes or lesions noted Objective Labs Result Diagrams: 08/08/20 06:20 Labs: Laboratory Results - last 24 hr 08/08/20 06:20 Hgb 11.1 L Hct 33.1 L PFSH Medical History Cardiomyopathy Cellulitis (~03/2018) Diabetes Dry skin Dyslipidemia Dyspnea Former smoker HTN (hypertension) Left ventricular hypertrophy Neuropathy NSVT (nonsustained ventricular tachycardia) DIDIER (obstructive sleep apnea) Pancreatitis Pedal edema PVC's (premature ventricular contractions) TIA (transient ischemic attack) Surgical History H/O cardiac radiofrequency ablation (05/17/20) History of loop recorder (~05/17/20) History of vasectomy Hx of bilateral cataract extraction Hx of eye surgery Hx of knee surgery Social History household members: none Smoking Status: Former smoker alcohol intake: current Assessment & Plan Post-op Postoperative Procedures: Procedures Operation Date: 08/07/20 07:45 Actual Procedures Side Surgeon p L3-4, L4-5, L5-S1 TLIF w. posterior instrumentation Not Applicable Cassidy Henry MD Postoperative day: 1 Postoperative status: doing well Postoperative plan: ambulate Postoperative plan narrative: Patient is to continue working on ambulation with the assistance of a front wheeled walker. Current pain management regimen is to be continued as it is adequately controlled the patient's pain level at this time. Patient is to continue working with physical therapy. We will monitor dressing site for increased drainage as the patient notes that he has had 2 dressing changes due to excessive bleeding following the surgery. Time Spent With Patient Time with patient: less than 15 minutes Quality VTE Deep Vein Thrombosis/Pulmonary Embolism Present on Admission: No
[2020-08-08] MEDS: ATORVASTATIN 20 MG TABLET 80 MG PO (16:57)
[2020-08-08] MEDS: FINASTERIDE 5 MG TABLET PO (20:32)
[2020-08-08] MEDS: SENNOSIDES 8.6 MG TABLET 17.2 MG PO (20:33)
--- NOTE | 2020-08-08 23:15 | PC.NURSE ---
VSS. Denies pain. De [place] catheter removed this evening due to patient complaining of irritation around his urethral meatus, voiding well into urinal. Mexiletine was not brought up from pharmacy and placed in his bin to be given at 2100, this customs entry writer was therefore unable to give this medication. Alerted charge nurse about this issue. Dressing on back cdi. Patient prefers to rest and sleep in his chair. Call light within reach.
[2020-08-09] VITALS (7 sets, daily range): BP systolic 114–148; BP diastolic 66–76; PULSE 67–90; RESP 16–28; TEMP 36.1–37.1; O2SAT 98–99
--- NOTE | 2020-08-09 07:19 | PM.PNPO.1 ---
Subjective Subjective Date Patient Seen: 08/09/20 Time Patient Seen: 07:19 Interval history: Patient states he is doing well overall and is in minimal discomfort at rest. At this time the patient denies fever, chills, nausea, chest pain, shortness of breath, or urinary retention. Patient reports mild decrease sensation to light touch on the lateral left thigh. Otherwise he notes good sensation throughout the bilateral lower extremities. Exam Vital Signs (past 8 hours): - 08/09/20 00:22 08/09/20 05:09 Temperature 98.1 F 98.7 F Pulse Rate 67 70 Respiratory Rate 16 16 Blood Pressure 122/69 128/72 Pulse Oximetry 99 Oxygen Delivery Method Room Air Oxygen Flow Rate 0 Narrative Exam Narrative: 75-year-old male postop day 2. Patient is resting comfortably in room chair, is in no acute distress, is alert and oriented x3. Skin is warm dry, and the skin surrounding the incision site is free of erythema, warmth, induration, or discharge. Dressing over the incision site is clean, dry, and intact. Mild decreased sensation to light touch appreciated on the left lateral thigh. Hemosiderin stating noted on the shins bilaterally. Gross motor function intact throughout the bilateral lower extremities. Ankle dorsiflexion, plantar flexion, eversion, inversion performed bilaterally without difficulty or discomfort. Calves are soft and nontender, negative Homans sign. DP pulses palpated bilaterally. No other signs of DVT appreciated. Const General: cooperative, healthy appearing and comfortable Resp Effort & Inspection: normal respiratory effort and able to speak in complete sentences Skin General: no rashes or lesions noted Objective Labs Result Diagrams: 08/08/20 06:20 [facility] Medical History Cardiomyopathy Cellulitis (~03/2018) Diabetes Dry skin Dyslipidemia Dyspnea Former smoker HTN (hypertension) Left ventricular hypertrophy Neuropathy NSVT (nonsustained ventricular tachycardia) DIDIER (obstructive sleep apnea) Pancreatitis Pedal edema PVC's (premature ventricular contractions) TIA (transient ischemic attack) Surgical History H/O cardiac radiofrequency ablation (05/17/20) History of loop recorder (~05/17/20) History of vasectomy Hx of bilateral cataract extraction Hx of eye surgery Hx of knee surgery Social History household members: none Smoking Status: Former smoker alcohol intake: current Assessment & Plan Post-op Postoperative Procedures: Procedures Operation Date: 08/07/20 07:45 Actual Procedures Side Surgeon p L3-4, L4-5, L5-S1 TLIF w. posterior instrumentation Not Applicable Cassidy Henry MD Postoperative day: 2 Postoperative status: doing well Postoperative plan: ambulate Postoperative plan narrative: Patient is to continue working on ambulation and stair Young with physical therapy. Current pain management regimen is to be continued as it is adequately controlled the patient's pain level at this time. Pending successful work with physical therapy patient likely to be discharged home today. Patient notes that his daughter is coming in today for caregiver training. Time Spent With Patient Time with patient: less than 15 minutes Quality VTE Deep Vein Thrombosis/Pulmonary Embolism Present on Admission: No
--- NOTE | 2020-08-09 07:48 | PC.NURSE ---
Addendum entered by Mansi Alexandre R.N. 08/09/20 12:34: Patient was a two person assist when amublating and standing with physical therapy, daughter was also in room and had to help patient with standing. He may go to a care center for rehab. Original Note: Patients coversite dressings to lower back x2 both cdi, he states that he is a bit uncomfortable, he wants to try some tylenol for pain. CMS wnl, patient has edema to his lower extremities with hemosydian staining, brown in color. He is a one to two person assist when ambulating and using the urinal to void. PPx2.
[2020-08-09] MEDS: DOCUSATE 100 MG CAPSULE PO ×2 (08:15→20:46)
[2020-08-09] MEDS: LOSARTAN 50 MG TABLET PO (08:15)
[2020-08-09] MEDS: METFORMIN 850 MG TABLET PO ×3 (08:15→20:46)
[2020-08-09] MEDS: GLIMEPIRIDE 2 MG TABLET 4 MG PO (08:15)
[2020-08-09] MEDS: METOPROLOL ER 50 MG TABLET PO ×2 (08:15→20:46)
[2020-08-09] MEDS: SPIRONOLACTONE 25 MG TABLET 12.5 MG PO (08:15)
[2020-08-09] MEDS: LORATADINE 10 MG TABLET PO (08:15)
[2020-08-09] MEDS: INSULIN GLARGINE 100 UNIT/ML 3ML PEN 51 UNIT SUBCUT ×2 (08:18→20:47)
--- NOTE | 2020-08-09 11:48 | PT.IPTN ---
Current Diagnoses Morbid (severe) obesity due to excess calories (08/07/20) Spinal stenosis, lumbar region with neurogenic claudication (08/07/20) Surgery Performed Operation Date: 08/07/20 07:45 Actual Procedures p L3-4, L4-5, L5-S1 TLIF w. posterior instrumentation(Not Applicable) - Cassidy Henry MD Physical Therapy Treatment Note M2 PT-IP Current Condition Start: 08/08/20 08:23 Freq: NEEDED Status: Active Protocol: Document 08/08/20 09:44 AW (Rec: 08/08/20 10:11 AW [id number]) Physical Therapy Current Condition Current Condition Evaluation Date 08/08/20 Treatment Diagnosis s/p L3-S1 TLIF; impaired mobility and gait Onset Date 08/07/20 Precautions Lumbar Precautions Log Roll,No Twisting,Limit Bending,Lifting Restriction of 10 lbs,Gait Belt above Incisional Area Weight Bearing Status Weight Bearing Status Weight Bear as Tolerated M3 PT-IP Subjective Start: 08/08/20 08:23 Freq: NEEDED Status: Active Protocol: Document 08/09/20 11:00 SP (Rec: 08/09/20 13:18 SP [id number]) Subjective Physical Therapy Visit Type Type Treatment Note Visit Start Time 11:00 Visit Stop Time 11:48 Total Visit Minutes 48 Notes Daughter attended entire tx and provided 2nd person assist required during tx. Number of MACHINE FASTENER Visits 2 Physical Therapy Visit Comments Patient Comments Pt was reclined in chair when arrived, willing to work with therapy. Patient Goals Get stronger to return home, agreeable to SNF. Therapy Pain Assessment Pain Present Pain Present Pain Reported Location low back Intensity 2 Scale Used Numeric (0 - 10) Description With Movement Pain Management Techniques Re-positioning,Timing of Activity with Medications M4 PT-IP Mobility and Gait Start: 08/08/20 08:23 Freq: NEEDED Status: Active Protocol: Document 08/09/20 11:00 SP (Rec: 08/09/20 13:18 SP [id number]) PT-Bed Mobility Assessment Rolling Type of Rolling Log Rolling,Bilateral Level of Assist Standby Assistance Supine to Sit Supine to Sit Moderate Assistance,1 Person Assistance,Bedrails Sit to Supine Sit to Supine Moderate Assistance,1 Person Assistance Scooting Scooting to Edge of Bed Standby Assistance PT-Transfer Assessment Sit to and From Stand Sit to and from Stand Maximum Assistance,2 Person Assistance,Use of Upper Extremities Equipment Transfer Assistive Device Gait Belt,Front Wheeled Walker Orthotic/Prosthetic Devices or Brace: No Transfers Transfer Destination Bed,Chair Transfer Technique pt ambulated using fWW Transfer Ability Level of Assist Minimal Assistance,Moderate Assistance,2 Person Assistance ,Use of Upper Extremities Comments Mobility Comments Pt was reclined in chair when arrived, daughter in room for caregiver training. Pt reported still experiencing numbness in lateral L thigh, not improved since surgery, pt not consistant if had prior to surgery but doesn't affect use to stand/ WB. Daughter donned gait belt with cuing for proper feed. Pt scooted to EOchair using BUE on chair arms SBA, Sit>stand Max X2, best if 1 UE on FWW for downward pressure, cued for quad facilitation complete upright posture. SPT using FWW chair>bed mod A x2 self fWW repositioning w/cues and cues for reaching back Mod A slow descent onto bed. Sit>L sidelying Min A upper body while use of bed rail with RUE and Mod A for BLE support onto bed by daughter. Instructed patient to align trunk forward EOB with use of rails then log roll onto back, CGA. Log roll L SBA w/ cues knees bent L sidelying to sit self LE to EOB Mod A w/ pt pull from daughter's arm RUE and push from bed LUE with good alignment. Scooted to EOB SBA, sit>stand Mod A x2 w/ FWW. Pt able to walk around room 30 ft only able to tolerate this tx w/ heavy BUE WB on FWW and BLE unsteady/ weak, cued upright no flexed posture precautions to decrease LB discomfort experienced. Pt returned to chair cued to reach back, Mod A to decend to chair. Discussed not reclined back to far to allow upright back alignment precautions no lumbar flexion/sacral sitting. MACHINE FASTENER discussed with pt and daughter requiring increase physical support today and recommending SNF to improve strength and functional mobility toward PLOF before returning home and both in agreement is alot weaker today . Pt is unsafe to assess 1 PF step mgt required to enter home at this time. Will continue to assess progress pm tx. Gait Assessment Gait Gait Assistance Required: Minimum Assistance,Moderate Assistance,2 Person Assist Distance (Feet) 30 Able to Maintain Weight Bearing Status Yes During Gait Assistive Devices Assistive Device Gait Belt,Front Wheeled Walker Orthotic/Prosthetic Devices or Brace: No Gait Deviations General Gait Pattern Antalgic,Decreased Stride Length,Decreased Feet Clearance,Flexed Trunk,Lateral Trunk Lean,Wide Based Gait Factors Limiting Gait Function Factors Limiting Gait Function Decreased Activity Tolerance, Decreased Sensation,Decreased Strength,Pain,Poor Balance, Poor Safety Awareness, Respiratory Distress Comments Gait Comments Pt requires cues for body closer to fWW and upright posture, increased Min- Mod A x2 persons due to decreased strength and + SOB after 1 lap in room required need to sit compared to 3 laps yesterday afternoon. Stair Climbing Assessment Comments Stair Climbing Comments Not safe to assess due to unsteady on feet requiring increase gait support. Will need to assess prior to DC home, 1 PF step w/ AD. PT-Balance Assessment Sitting Balance and Reactions Static Sitting Balance Ability Good Dynamic Sitting Balance Ability Good Standing Balance and Reactions Static Standing Balance Ability Poor Dynamic Standing Balance Ability Poor Device Used FWW M5 PT-IP Objective Assessments Start: 08/08/20 08:23 Freq: NEEDED Status: Active Protocol: Document 08/08/20 09:44 AW (Rec: 08/08/20 10:11 AW [id number]) Orientation Orientation/Cognition Level of Alertness Alert Orientation Name,Day of Week,Place, Situation Language Function Ability Hard of Hearing Safety Awareness Decreased Safety Awareness Memory Description No Deficits Noted Gross Range of Motion Lower Extremity ROM Assessment Within Functional Limits Strength Lower Extremity Strength Assessment Bilaterally Impaired Hip 3+/5 Knee 4/5 Ankle R 4+/5; L 4-/5 Comments Strength Comments Left ankle more affected by neuropathy at baseline. Sensation Assessment Sensation Gross Sensation Right UE Impaired,Left UE Impaired,Right LE Impaired, Left LE Impaired Light Touch Impaired Proprioception (Position) Impaired Sensation Description Numbness,Tingling Comments Sensation Comments Pt reports chronic peripheral neuropathy affecting bilateral hands and feet. He states his left anterior and lateral thigh is numb which is new since surgery. Muscle Tone Muscle Tone WNL Yes Other Assessments Other Other Assessments BP WNL before and after assessment. M6 PT-IP Treatment Start: 08/08/20 08:23 Freq: NEEDED Status: Active Protocol: Document 08/09/20 11:00 SP (Rec: 08/09/20 13:18 SP [id number]) Physical Therapy Treatment Education Education Provided Precautions,Weight Bearing Status,Safety M7 PT-IP Assessment and Plan Start: 08/08/20 08:23 Freq: NEEDED Status: Active Protocol: Document 08/09/20 11:00 SP (Rec: 08/09/20 13:18 SP [id number]) PT Summary Assessment and Plan Potential Rehabilitation Potential Good Status of Condition at Evaluation Evolving Summary Impairments Pain,ROM,Strength,Balance, Sensation,Bed Mobility, Transfers,Gait,Activity Tolerance Progress Towards Goals Slow Progress due to Activity Tolerance Assessment Summary Pt required increased physical assist Max x2 during sit<> stand using FWW, supine<>sit Min-Mod x1. Mod A x2 persons for gait 30 ft using FWW in room. Pt would benefit from further skilled acute PT, will continue to assess progress, at this time recommending SNF to improve strength and functional mobility. Goals Bed Mobility Goal Standby Assistance Transfer Goal Standby Assistance,Front Wheeled Walker Gait Goal Standby Assistance,Front Wheel Walker Gait Distance 100 Other Goals - up/down platform step with FWW CGA Days to Meet Goals 5 Frequency of Treatment Frequency Of Treatment Twice a Day Treatment Plan Physical Therapy Treatment Plan Bed Mobility Training,Transfer Training,Gait Training, Therapeutic Exercise,Balance Retraining,Post Op Education, Discharge Planning,Hot or Cold Pack Other Recommendations and Next Treatment transfers, gait using FWW, PF Focus step when safe and able. Recommendations To Nursing Amount of Assist Needed 2 Person Assist Discharge Recommendations PT Discharge Recommendations SNF Rehab Transportation Needs at Discharge Private Vehicle,Wheelchair/ Cabulance
[2020-08-09] MEDS: INSULIN LISPRO 100 UNIT/ML 3ML VIAL SUBCUT ×3 (12:17→20:47)
--- NOTE | 2020-08-09 13:50 | CM.DPC ---
Addendum entered by Corrine Marquez 08/09/20 14:13: Received call from Adrienne at [facility] she reports that they can accept when medically stable. Patient will need to bring his own CPAP and home medication (trulicity). Will update patient today. PASRR completed. DAVIS Canas Original Note: DCP continued: Reviewed chart. Received notification from therapy and new recommendation is SNF. Per therapy patient progressing slowly. Met with patient and daughter/Sigrid at bedside explained role. Patient aware and agreeable to SNF first choice is [facility] second choice is [facility]. Placed call to Adrienne at [facility] requesting she review for admit. Patient will be eligible for SNF per Medicare guidelines tomorrow 08-10-20. P: [facility] reviewing for potential admit when medically stable. CM team to follow closely. PASRR needed. DAVIS Canas
[2020-08-09] MEDS: ACETAMINOPHEN 325 MG TABLET 650 MG PO (14:52)
--- NOTE | 2020-08-09 15:30 | PT.IPTN ---
Current Diagnoses Morbid (severe) obesity due to excess calories (08/07/20) Spinal stenosis, lumbar region with neurogenic claudication (08/07/20) Surgery Performed Operation Date: 08/07/20 07:45 Actual Procedures p L3-4, L4-5, L5-S1 TLIF w. posterior instrumentation(Not Applicable) - Cassidy Henry MD Physical Therapy Treatment Note M2 PT-IP Current Condition Start: 08/08/20 08:23 Freq: NEEDED Status: Active Protocol: Document 08/08/20 09:44 AW (Rec: 08/08/20 10:11 AW [id number]) Physical Therapy Current Condition Current Condition Evaluation Date 08/08/20 Treatment Diagnosis s/p L3-S1 TLIF; impaired mobility and gait Onset Date 08/07/20 Precautions Lumbar Precautions Log Roll,No Twisting,Limit Bending,Lifting Restriction of 10 lbs,Gait Belt above Incisional Area Weight Bearing Status Weight Bearing Status Weight Bear as Tolerated M3 PT-IP Subjective Start: 08/08/20 08:23 Freq: NEEDED Status: Active Protocol: Document 08/09/20 14:48 SP (Rec: 08/09/20 17:25 SP [id number]) Subjective Physical Therapy Visit Type Type Treatment Note Visit Start Time 14:48 Visit Stop Time 15:30 Total Visit Minutes 42 Number of GOLF COURSE EQUIPMENT OPERATOR Visits 3 Physical Therapy Visit Comments Patient Comments Pt was reclined in chair when arrived, willing to work with therapy. Patient Goals Get stronger to return home, agreeable to SNF. Therapy Pain Assessment Pain Present Pain Present Denied Pain Location low back Scale Used only back irriration laying against fabric on back seat chair Pain Management Techniques Re-positioning,Timing of Activity with Medications M4 PT-IP Mobility and Gait Start: 08/08/20 08:23 Freq: NEEDED Status: Active Protocol: Document 08/09/20 14:48 SP (Rec: 08/09/20 17:25 SP [id number]) PT-Transfer Assessment Sit to and From Stand Sit to and from Stand Moderate Assistance,Maximum Assistance,1 Person Assistance ,Use of Upper Extremities Equipment Transfer Assistive Device Gait Belt,Front Wheeled Walker Orthotic/Prosthetic Devices or Brace: No Transfers Transfer Destination Chair,Toilet Transfer Technique pt ambulated using fWW Transfer Ability Level of Assist Contact Guard Assistance, Minimal Assistance,1 Person Assistance,Use of Upper Extremities Comments Mobility Comments Pt was reclined in chair when arrived. Scoot to EOchair self sBA, Sit>stand Max A x1 w/ heavy BUE on chair arms then transition to FWW with unsteady LEs, cued quad facilitation and upright posture. Pt ambulated to bathroom with BSC over toilet CGA- Low min A x1, slow descent to BSC Min A and use of grab bar and BSC arm rest. Pt able to void. Sit>stand Max A x1 use of vertical grab bar and arm rest. Pt ambulated to sink, cued FWW forward facing , heavy BUE WB on sink and he stated getting tired, GOLF COURSE EQUIPMENT OPERATOR assisted washing and drying one hand at time while other UE on sink CG- MIn A for stand balance, cued taller posture. Pt returned to chair using FWW CGA- Min A and Min A slow descend to chair. GOLF COURSE EQUIPMENT OPERATOR had acquired a waffle cushion provided by PROVIDER RELATIONS MANAGER when requested to assist discomfort pressure on bottom with good feedback felt alot better. Sit>stand from chair Mod A x1 heavy BUE WB on chair arms. Pt walked further distance into hallway using FWW CG- Min A step over step gait WBOS, cued small step turns pivot inhallway, pt returned to chair in room with Min A slow descent into chair. Pt had call light and all needs in reach. GOLF COURSE EQUIPMENT OPERATOR noted FWW front wheels not turning as easily as can, placed a work order for maintainence to assess. PT Aide earlier sprayed wheels but no significant improvement, there is not another bariatric tall FWW available to use. Pt would benefit from continued skilled therapy to improved strength and functional mobility. Gait Assessment Gait Gait Assistance Required: Contact Guard Assist,Minimum Assistance,1 Person Assist Distance (Feet) 110 Able to Maintain Weight Bearing Status Yes During Gait Assistive Devices Assistive Device Gait Belt,Front Wheeled Walker Orthotic/Prosthetic Devices or Brace: No Gait Deviations General Gait Pattern Antalgic,Decreased Stride Length,Decreased Feet Clearance,Flexed Trunk,Wide Based Gait Factors Limiting Gait Function Factors Limiting Gait Function Decreased Activity Tolerance, Decreased Sensation,Decreased Strength,Pain,Poor Balance, Poor Safety Awareness, Respiratory Distress Comments Gait Comments See mobility comments. Noted increase respiratory rate and effort during gait further distance into hallway FWW CG- Ameya x1. Stair Climbing Assessment Comments Stair Climbing Comments Not safe to assess due to increase BUE on FWW and unsteady BLEs with limited endurance on feet. Will need to assess prior to DC home, 1 PF step w/ AD. PT-Balance Assessment Sitting Balance and Reactions Static Sitting Balance Ability Good Dynamic Sitting Balance Ability Fair Standing Balance and Reactions Static Standing Balance Ability Fair Dynamic Standing Balance Ability Fair Device Used FWW M5 PT-IP Objective Assessments Start: 08/08/20 08:23 Freq: NEEDED Status: Active Protocol: Document 08/08/20 09:44 AW (Rec: 08/08/20 10:11 AW [id number]) Orientation Orientation/Cognition Level of Alertness Alert Orientation Name,Day of Week,Place, Situation Language Function Ability Hard of Hearing Safety Awareness Decreased Safety Awareness Memory Description No Deficits Noted Gross Range of Motion Lower Extremity ROM Assessment Within Functional Limits Strength Lower Extremity Strength Assessment Bilaterally Impaired Hip 3+/5 Knee 4/5 Ankle R 4+/5; L 4-/5 Comments Strength Comments Left ankle more affected by neuropathy at baseline. Sensation Assessment Sensation Gross Sensation Right UE Impaired,Left UE Impaired,Right LE Impaired, Left LE Impaired Light Touch Impaired Proprioception (Position) Impaired Sensation Description Numbness,Tingling Comments Sensation Comments Pt reports chronic peripheral neuropathy affecting bilateral hands and feet. He states his left anterior and lateral thigh is numb which is new since surgery. Muscle Tone Muscle Tone WNL Yes Other Assessments Other Other Assessments BP WNL before and after assessment. M6 PT-IP Treatment Start: 08/08/20 08:23 Freq: NEEDED Status: Active Protocol: Document 08/09/20 14:48 SP (Rec: 08/09/20 17:25 SP [id number]) Physical Therapy Treatment Exercises Exercises Ankle Pumps,Seated Knee Flexion/Extension Education Education Provided Precautions,Weight Bearing Status,Safety Other Treatments Other Treatment Performed Ed provided safe use of FWW. Instructed LE exercises seated and supine between tx to assist LE strength: seated: HRTR, LAQ holds, marching, abdominal facilitation; supine : heel slides, SLR w/ core facilitation, ankle pumps. M7 PT-IP Assessment and Plan Start: 08/08/20 08:23 Freq: NEEDED Status: Active Protocol: Document 08/09/20 14:48 SP (Rec: 08/09/20 17:25 SP [id number]) PT Summary Assessment and Plan Potential Rehabilitation Potential Good Status of Condition at Evaluation Evolving Summary Impairments Pain,ROM,Strength,Balance, Sensation,Bed Mobility, Transfers,Gait,Activity Tolerance Progress Towards Goals Progressing Toward Goals,Slow Progress due to Activity Tolerance Assessment Summary Pt required increased physical assist Max x2 during sit<> stand using FWW, supine<>sit Min-Mod x1. Mod A x2 persons for gait 30 ft using FWW in room. Pt would benefit from further skilled acute PT, will continue to assess progress, at this time recommending SNF to improve strength and functional mobility. Goals Bed Mobility Goal Standby Assistance Transfer Goal Standby Assistance,Front Wheeled Walker Gait Goal Standby Assistance,Front Wheel Walker Gait Distance 100 Other Goals - up/down platform step with FWW CGA Days to Meet Goals 5 Frequency of Treatment Frequency Of Treatment Twice a Day Treatment Plan Physical Therapy Treatment Plan Bed Mobility Training,Transfer Training,Gait Training, Therapeutic Exercise,Balance Retraining,Post Op Education, Discharge Planning,Hot or Cold Pack Other Recommendations and Next Treatment transfers, gait using FWW Focus further distance, PF step when safe and able. Precautions Lumbar Precautions Log Roll,No Twisting,Limit Bending,Lifting Restriction of 10 lbs,Gait Belt above Incisional Area Recommendations To Nursing Amount of Assist Needed 1 Person Assist Discharge Recommendations PT Discharge Recommendations SNF Rehab Transportation Needs at Discharge Private Vehicle,Wheelchair/ Cabulance
--- NOTE | 2020-08-09 15:42 | CM.DPNOTE ---
Faxed covid 19 vaccine care to [facility] on 08/09/20. Received fax confirmation. Mayuri De Oliveira CM Asst.
[2020-08-09] MEDS: ATORVASTATIN 20 MG TABLET 80 MG PO (17:06)
[2020-08-09] MEDS: SENNOSIDES 8.6 MG TABLET 17.2 MG PO (20:46)
[2020-08-09] MEDS: FINASTERIDE 5 MG TABLET PO (20:47)
--- NOTE | 2020-08-09 23:18 | PC.NURSE ---
VSS. A&Ox4. Denies pain but has some discomfort with movement. Had 400 cc output this afternoon and another 100cc this evening. Patient states he feels like he still needs to go and is having some irritations around his urethral meatus. Bladder scan after is 100cc showed minimal urine in bladder. B, 236. Call light within reach, bed low. In bed this evening for the first time to try to alleviate from pressure from sitting in his chair.
[2020-08-10] VITALS: BP 148/81; PULSE 88; RESP 18; TEMP 36.9; O2SAT 99
--- NOTE | 2020-08-10 00:25 | PC.NURSE ---
Addendum entered by Ginny Smith R.N. 08/10/20 06:18: no void during this shift so bladder scan done and showing only 45cc. Assisted to BSC with walker and 1 assist and found to have been incontinent of urine soaking 2 incontinent pads on bed. Original Note: patient is alert and oriented. Breath sounds CTA with RA sat of 99%; chronically SOB with exertion. Using CPAP for night. BP elevated at 148/81. Denies nausea. BT present and is passing flatus. Only voided 100cc on previous shift; bladder scan now showing 114cc. Denies pressure/discomfort over bladder but does complain of burning at tip of penis. Is able to turn himself in bed. Gait not assessed at this time as is in bed; evening RN reports he is up with walker and 1-2 assists. Dressing to back is CDI. Chronic neuropathy in bilateral LE toe to knee and bilateral hands. Still having numbness of anterior/lateral left thigh. Denies pain. Declines use of SCD's so reminded to ankle wave when awake; verbalizes understanding. Fall risk score is high and bed alarm is activated.
[2020-08-10 04:45] VITALS: BP 132/70; PULSE 81; RESP 18; TEMP 37.1; O2SAT 96
--- NOTE | 2020-08-10 07:33 | P.PN_ITS ---
Subjective Subjective Date Patient Seen: 08/10/20 Time Patient Seen: 07:34 Interval history: Patient states he is doing well overall and is in minimal discomfort at rest. At this time the patient denies fever, chills, chest pain, or shortness of breath. He notes that he has had difficulty voiding, he reports feeling the need to void. Exam Vital Signs (past 8 hours): - 08/10/20 00:00 08/10/20 04:45 Temperature 98.5 F 98.8 F Pulse Rate 88 81 Respiratory Rate 18 18 Blood Pressure 148/81 H 132/70 Pulse Oximetry 99 96 Oxygen Delivery Method Room Air,CPAP Oxygen Flow Rate 0 Narrative Exam Narrative: Pleasant 75-year-old male postop day 3. Patient is resting comfortably in bed, is in no acute distress, and is alert and oriented x3. Skin is warm and dry, and the skin surrounding the incision site is free of erythema, warmth, induration, or discharge. Dressing over the incision site is clean, dry, and intact. Decreased sensation to light touch along the lateral left thigh, otherwise good sensation appreciated throughout the bilateral lower extremities. Hemosiderin staining appreciated the bilateral anterior legs. Ankle dorsiflexion, plantar flexion, eversion, inversion performed bilaterally without difficulty or discomfort. Gross motor function intact throughout the bilateral lower extremities. DP pulses palpated bilaterally. Calves are soft and nontender, negative Homans sign. No other signs of DVT appreciated. Const General: cooperative, healthy appearing and comfortable Resp Effort & Inspection: normal respiratory effort and able to speak in complete sentences Skin General: no rashes or lesions noted Objective Labs Result Diagrams: 08/08/20 06:20 [facility] Medical History Cardiomyopathy Cellulitis (~03/2018) Diabetes Dry skin Dyslipidemia Dyspnea Former smoker HTN (hypertension) Left ventricular hypertrophy Neuropathy NSVT (nonsustained ventricular tachycardia) DIDIER (obstructive sleep apnea) Pancreatitis Pedal edema PVC's (premature ventricular contractions) TIA (transient ischemic attack) Surgical History H/O cardiac radiofrequency ablation (05/17/20) History of loop recorder (~05/17/20) History of vasectomy Hx of bilateral cataract extraction Hx of eye surgery Hx of knee surgery Social History household members: none Smoking Status: Former smoker alcohol intake: current Assessment & Plan Post-op Postoperative Procedures: Procedures Operation Date: 08/07/20 07:45 Actual Procedures Side Surgeon p L3-4, L4-5, L5-S1 TLIF w. posterior instrumentation Not Applicable Cassidy Henry MD Postoperative day: 3 Postoperative status: doing well Postoperative plan: ambulate Postoperative plan narrative: Patient is to continue working on ambulation with the assistance of a front wheeled walker with physical therapy. Patient is to remain weight-bearing as tolerated. Current pain management regimen is to be continued as it is adequately controlled the patient's pain level. Anticipated transfer to [facility] facility either today or tomorrow. Patient experienced what he believes to be decreased strength yesterday morning while working with physical therapy. PT recommending [facility] facility placement due to difficulty mobilizing the patient. Time Spent With Patient Time with patient: less than 15 minutes Quality VTE Deep Vein Thrombosis/Pulmonary Embolism Present on Admission: No
[2020-08-10 08:00] VITALS: BP 116/72; PULSE 77; RESP 19; TEMP 36.8; O2SAT 95
--- NOTE | 2020-08-10 08:15 | PT.IPTN ---
Current Diagnoses Morbid (severe) obesity due to excess calories (08/07/20) Spinal stenosis, lumbar region with neurogenic claudication (08/07/20) Surgery Performed Operation Date: 08/07/20 07:45 Actual Procedures p L3-4, L4-5, L5-S1 TLIF w. posterior instrumentation(Not Applicable) - Cassidy Henry MD Physical Therapy Treatment Note M2 PT-IP Current Condition Start: 08/08/20 08:23 Freq: NEEDED Status: Discharge Protocol: Document 08/08/20 09:44 AW (Rec: 08/08/20 10:11 AW [id number]) Physical Therapy Current Condition Current Condition Evaluation Date 08/08/20 Treatment Diagnosis s/p L3-S1 TLIF; impaired mobility and gait Onset Date 08/07/20 Precautions Lumbar Precautions Log Roll,No Twisting,Limit Bending,Lifting Restriction of 10 lbs,Gait Belt above Incisional Area Weight Bearing Status Weight Bearing Status Weight Bear as Tolerated M3 PT-IP Subjective Start: 08/08/20 08:23 Freq: NEEDED Status: Discharge Protocol: Document 08/10/20 07:45 AMB (Rec: 08/10/20 15:20 AMB [email or web address]) Subjective Physical Therapy Visit Type Type Treatment Note Visit Start Time 07:45 Visit Stop Time 08:10 Total Visit Minutes 25 Physical Therapy Visit Comments Patient Comments Pt is ready for therapy, in bed. Therapy Pain Assessment Pain Present Pain Present Denied Pain M4 PT-IP Mobility and Gait Start: 08/08/20 08:23 Freq: NEEDED Status: Discharge Protocol: Document 08/10/20 07:45 AMB (Rec: 08/10/20 15:20 AMB [email or web address]) PT-Bed Mobility Assessment Rolling Type of Rolling Log Rolling,Bilateral Level of Assist Standby Assistance Supine to Sit Supine to Sit Minimal Assistance,Bedrails Sit to Supine Sit to Supine Moderate Assistance,1 Person Assistance PT-Transfer Assessment Sit to and From Stand Sit to and from Stand Moderate Assistance,1 Person Assistance,Use of Upper Extremities Equipment Transfer Assistive Device Gait Belt,Front Wheeled Walker Orthotic/Prosthetic Devices or Brace: No Transfers Transfer Destination Bed,Chair Transfer Technique pt ambulated using fWW Transfer Ability Level of Assist Contact Guard Assistance, Minimal Assistance,1 Person Assistance,Use of Upper Extremities Comments Mobility Comments Pt was feeling nauseous this morning. Biggest need for assistance was with sit to stand first sit to stand almost MaxA, but second was more ModA. Was able to ambulate around room with FWW and short steps, did need assist to get LEs into bed with sit to supine. Gait Assessment Gait Gait Assistance Required: Contact Guard Assist,Minimum Assistance,1 Person Assist Distance (Feet) 20 Able to Maintain Weight Bearing Status Yes During Gait Assistive Devices Assistive Device Gait Belt,Front Wheeled Walker Orthotic/Prosthetic Devices or Brace: No Gait Deviations General Gait Pattern Antalgic,Decreased Stride Length,Decreased Feet Clearance,Flexed Trunk,Wide Based Gait Factors Limiting Gait Function Factors Limiting Gait Function Decreased Activity Tolerance, Decreased Sensation,Decreased Strength,Pain,Poor Balance, Poor Safety Awareness, Respiratory Distress Comments Gait Comments Poor posture, Ameya for FWW management, fatigued quickly. Stair Climbing Assessment Comments Stair Climbing Comments Not safe to assess due to increase BUE on FWW and unsteady BLEs with limited endurance on feet. Will need to assess prior to DC home, 1 PF step w/ AD. PT-Balance Assessment Sitting Balance and Reactions Static Sitting Balance Ability Good Dynamic Sitting Balance Ability Fair Standing Balance and Reactions Static Standing Balance Ability Fair Dynamic Standing Balance Ability Fair Device Used FWW M5 PT-IP Objective Assessments Start: 08/08/20 08:23 Freq: NEEDED Status: Discharge Protocol: Document 08/08/20 09:44 AW (Rec: 08/08/20 10:11 AW [id number]) Orientation Orientation/Cognition Level of Alertness Alert Orientation Name,Day of Week,Place, Situation Language Function Ability Hard of Hearing Safety Awareness Decreased Safety Awareness Memory Description No Deficits Noted Gross Range of Motion Lower Extremity ROM Assessment Within Functional Limits Strength Lower Extremity Strength Assessment Bilaterally Impaired Hip 3+/5 Knee 4/5 Ankle R 4+/5; L 4-/5 Comments Strength Comments Left ankle more affected by neuropathy at baseline. Sensation Assessment Sensation Gross Sensation Right UE Impaired,Left UE Impaired,Right LE Impaired, Left LE Impaired Light Touch Impaired Proprioception (Position) Impaired Sensation Description Numbness,Tingling Comments Sensation Comments Pt reports chronic peripheral neuropathy affecting bilateral hands and feet. He states his left anterior and lateral thigh is numb which is new since surgery. Muscle Tone Muscle Tone WNL Yes Other Assessments Other Other Assessments BP WNL before and after assessment. M6 PT-IP Treatment Start: 08/08/20 08:23 Freq: NEEDED Status: Discharge Protocol: Document 08/09/20 14:48 SP (Rec: 08/09/20 17:25 SP [id number]) Physical Therapy Treatment Exercises Exercises Ankle Pumps,Seated Knee Flexion/Extension Education Education Provided Precautions,Weight Bearing Status,Safety Other Treatments Other Treatment Performed Ed provided safe use of FWW. Instructed LE exercises seated and supine between tx to assist LE strength: seated: HRTR, LAQ holds, marching, abdominal facilitation; supine : heel slides, SLR w/ core facilitation, ankle pumps. M7 PT-IP Assessment and Plan Start: 08/08/20 08:23 Freq: NEEDED Status: Discharge Protocol: Document 08/10/20 07:45 AMB (Rec: 08/10/20 15:20 AMB [email or web address]) PT Summary Assessment and Plan Potential Rehabilitation Potential Good Status of Condition at Evaluation Evolving Summary Impairments Pain,ROM,Strength,Balance, Sensation,Bed Mobility, Transfers,Gait,Activity Tolerance Progress Towards Goals Progressing Toward Goals,Slow Progress due to Activity Tolerance Assessment Summary Pt would benefit from further skilled PT in SNFdue to need for heavy assist with sit to stand, sit to supine and gait safety, pt will need to step up onto patio step to get into his home and is too weak to be able to do this safely at this time. Goals Bed Mobility Goal Standby Assistance Transfer Goal Standby Assistance,Front Wheeled Walker Gait Goal Standby Assistance,Front Wheel Walker Gait Distance 100 Other Goals - up/down platform step with FWW CGA Days to Meet Goals 5 Frequency of Treatment Frequency Of Treatment Twice a Day Treatment Plan Physical Therapy Treatment Plan Bed Mobility Training,Transfer Training,Gait Training, Therapeutic Exercise,Balance Retraining,Post Op Education, Discharge Planning,Hot or Cold Pack Other Recommendations and Next Treatment transfers, gait using FWW Focus further distance, PF step when safe and able. Precautions Lumbar Precautions Log Roll,No Twisting,Limit Bending,Lifting Restriction of 10 lbs,Gait Belt above Incisional Area Recommendations To Nursing Amount of Assist Needed 1 Person Assist Discharge Recommendations PT Discharge Recommendations SNF Rehab Transportation Needs at Discharge Private Vehicle,Wheelchair/ Cabulance
--- NOTE | 2020-08-10 08:36 | PM.DS.1 ---
History of Present Illness History of Present Illness Date Patient Seen: 08/10/20 Time Patient Seen: 08:36 Chief complaint: INPT Narrative: Patient has been having chronic back pain and worsening lumbar radiculopathy. Symptoms began approximately 2 years ago. Patient had experienced pain in the left anterolateral thigh, and he noted pain in his lower back when standing up straight. Patient failed multiple conservative management with worsening pain weakness and numbness in her lower extremity. Patient has been having difficulty performing activity of daily living. After discussing risks benefits of treatment options, patient elected proceed with surgery. Discharge Providers Provider Date of admission: 08/07/20 06:38 Discharge Date: 08/10/20 Primary care physician: Beni Collazo MD Consults: 08/07/20 07:31 Consult to Respiratory Therapy Evaluate & Treat Comment: Physician Instructions: Evaluate and treat 08/07/20 14:22 Consult to Occupational Therapy Evaluate & Treat Comment: Physician Instructions: Evaluate and treat Consult to Physical Therapy Evaluate & Treat Comment: Physician Instructions: Evaluate and Treat Discharge provider: Chas Major PA-C Summary Hospital Course Discharge Diagnosis: Spinal stenosis Neurogenic claudication Status post L3-4, L4-5 Postero-lateral and posterior interbody fusion, L3-4, L4-5 interbody cage placement, L3-4, L4-5 decompressive laminectomy with bilateral facetecomies, L3-4, L4-5 Posterior segmental instrumentation, [place] of bone marrow from iliac crest, Utilization of microsurgical technique and operating microscope Hospital Course: Patient was admitted to the hospital following the above-listed procedures for the above-listed diagnoses. Following the procedure the patient has been convalescing appropriately in his pain has been managed with his current pain management regimen. Dressing over the incision site has remained intact and has been changed as needed as it becomes soiled. Patient has been working with physical therapy on ambulation with the assistance of a front wheeled walker. Following the procedure the patient has avoided bending, twisting, or lifting in excess of 10 lb. Patient has denied symptoms of fever, chills, nausea, chest pain, or shortness of breath. Patient has explained that he has had difficulty voiding, stating that he has a sensation of pressure in his lower abdomen but has only been able to void small volumes. Patient has had difficulty mobilizing with physical therapy, noting that yesterday morning he experienced increased weakness overall. Status at Discharge Cognitive/behavioral status at discharge: oriented Functional status at discharge: uses cane/walker Overall status at discharge: patient is progressing back to baseline Exam Vital Signs (past 8 hours): - 08/10/20 04:45 Temperature 98.8 F Pulse Rate 81 Respiratory Rate 18 Blood Pressure 132/70 Pulse Oximetry 96 Oxygen Delivery Method Room Air,CPAP Oxygen Flow Rate 0 Narrative Exam Narrative: Pleasant 75-year-old male postop day 3. Patient is resting comfortably in bed, is in no acute distress, and is alert and oriented x3. Skin is warm and dry, and the skin surrounding the incision site is free of erythema, warmth, induration, or discharge. Dressing over the incision site is clean, dry, and intact. Decreased sensation to light touch along the lateral left thigh, otherwise good sensation appreciated throughout the bilateral lower extremities. Hemosiderin staining appreciated the bilateral anterior legs. Ankle dorsiflexion, plantar flexion, eversion, inversion performed bilaterally without difficulty or discomfort. Gross motor function intact throughout the bilateral lower extremities. DP pulses palpated bilaterally. Calves are soft and nontender, negative Homans sign. No other signs of DVT appreciated. Const General: cooperative, healthy appearing and comfortable Resp Effort & Inspection: normal respiratory effort and able to speak in complete sentences Skin General: no rashes or lesions noted Objective Labs Result Diagrams: 08/08/20 06:20 [facility] Medical History Cardiomyopathy Cellulitis (~03/2018) Diabetes Dry skin Dyslipidemia Dyspnea Former smoker HTN (hypertension) Left ventricular hypertrophy Neuropathy NSVT (nonsustained ventricular tachycardia) DIDIER (obstructive sleep apnea) Pancreatitis Pedal edema PVC's (premature ventricular contractions) TIA (transient ischemic attack) Surgical History H/O cardiac radiofrequency ablation (05/17/20) History of loop recorder (~05/17/20) History of vasectomy Hx of bilateral cataract extraction Hx of eye surgery Hx of knee surgery Social History household members: none Smoking Status: Former smoker alcohol intake: current Discharge Assessment & Plan Assessment and Plan Assessment: Patient is doing well and is stable. Plan of Treatment: First postoperative visit is scheduled for 2 weeks following discharge from the hospital. [facility]. Current pain management regimen is to be continued as it is adequately controlled the patient's pain level. Dressing over the incision site is to remain clean, dry, and intact. Dressing can be changed as needed if it becomes damaged or soiled. Patient is to avoid placing topical ointments over the incision site or soaking the incision site. Patient is to remain weight-bearing as tolerated with the assistance of a front wheeled walker. Avoid bending, twisting, or lifting in excess of 10 lb. Patient is to contact the clinic with any concerns or questions. Any signs of increased redness, swelling, warmth, pain, or discharge from around the incision site should be reported to the clinic. Discharge Plan Discharge Plan Patient Disposition: SNF [facility] to: [facility] Provider Discharge Comment: Patient cleared for discharge pending [facility] facility acceptance. Discharge orders & Medications Prescriptions: New acetaminophen 325 mg Tablet 650 mg PO Q6HR PRN (Reason: Pain, Mild (1-3)) Qty: 90 RF: 0 oxycodone 5 mg Tablet 10 mg PO Q3HR PRN (Reason: Pain, Severe (7-10)) Qty: 42 RF: 0 Continued atorvastatin 80 mg Tablet 80 mg PO QPM RF: 0 cetirizine [Aller-Andrzej] 10 mg Tablet 10 mg PO DAILY RF: 0 metoprolol succinate 50 mg Tablet Extended Release 24 Hr 50 mg PO BID RF: 0 ibuprofen 200 mg Capsule 600 mg PO BID RF: 0 metformin 850 mg Tablet 850 mg PO TID RF: 0 aspirin 81 mg Tablet,Delayed Release (Dr/Ec) 81 mg PO DAILY RF: 0 acetaminophen 500 mg Tablet 1,000 mg PO BID RF: 0 spironolactone 25 mg Tablet 12.5 mg PO DAILY RF: 0 mexiletine 150 mg Capsule 150 mg PO TID RF: 0 telmisartan [Micardis] 40 mg Tablet 40 mg PO DAILY RF: 0 glimepiride 4 mg Tablet 4 mg PO QAM RF: 0 finasteride 5 mg Tablet 5 mg PO BEDTIME RF: 0 Lantus Solostar U-100 Insulin 100 unit/mL (3 mL) Insulin Pen 51 unit SUBCUT BID RF: 0 Trulicity 4.5 mg/0.5 mL Pen Injector 4.5 mg SUBCUT QWEEK RF: 0 Follow up/Referrals: Beni Collazo MD [Primary Care Provider] - Diet/Activity/Treatments Diet: Regular Activity: Weight-bearing as tolerated with the assistance of a front wheeled walker. Avoid bending, twisting or lifting in excess of 10 lb. Skin/Wound/Dressing Care Report to your healthcare provider any signs of infection, such as:: chills, fever, night sweats, increased pain, unusual drainage and unusual redness Dressing: Dressing over the incision site can be changed as needed if it becomes damaged or soiled. Other wound treatment: Avoid placing topical ointments over the incision site. Avoid soaking the incision site. [facility] Reason for rehabilitation: Post-operative therapy Rehab type: Physical therapy and Occupational therapy Visit Report/Discharge Packet Instructions: DI for Prescription Opioid Use, DI for Transforaminal Lumbar Interbody Fusion Stand Alone Forms: Surgery Discharge Discharge Data Primary Care Provider: Beni Collazo Quality VTE Deep Vein Thrombosis/Pulmonary Embolism Present on Admission: No
[2020-08-10] MEDS: INSULIN LISPRO 100 UNIT/ML 3ML VIAL SUBCUT ×2 (08:51→13:03)
[2020-08-10 08:52] VITALS: BP 116/72; PULSE 77
[2020-08-10] MEDS: DOCUSATE 100 MG CAPSULE PO (08:52)
[2020-08-10] MEDS: GLIMEPIRIDE 2 MG TABLET 4 MG PO (08:52)
[2020-08-10] MEDS: SPIRONOLACTONE 25 MG TABLET 12.5 MG PO (08:52)
[2020-08-10] MEDS: METOPROLOL ER 50 MG TABLET PO (08:52)
[2020-08-10] MEDS: METFORMIN 850 MG TABLET PO (08:52)
[2020-08-10] MEDS: LORATADINE 10 MG TABLET PO (08:52)
[2020-08-10 08:53] VITALS: BP 116/72; PULSE 77
[2020-08-10] MEDS: LOSARTAN 50 MG TABLET PO (08:53)
[2020-08-10] MEDS: ONDANSETRON 4 MG/2 ML INJ IV (08:53)
[2020-08-10] MEDS: SODIUM CHLORIDE 0.9% FLUSH 10 ML IV (08:53)
[2020-08-10] MEDS: INSULIN GLARGINE 100 UNIT/ML 3ML PEN 51 UNIT SUBCUT (08:54)
[2020-08-10] MEDS: MAGNESIUM HYDROXIDE 30 ML UDC PO (09:12)
[2020-08-10 09:25] VITALS: BP 115/72; PULSE 77
--- NOTE | 2020-08-10 09:27 | OT.IPNOTE ---
Pt not wanting to shower at this time ,feeling nauseous and looking to go to skilled rehab today.
--- NOTE | 2020-08-10 11:46 | PC.NURSE ---
Report called to Corrina CAMPOS at [facility]. Safe hand off.
[2020-08-10 12:08] LABS: COVID19 -Nasal RAPID Negative (Negative)
--- NOTE | 2020-08-10 16:32 | CM.DPNOTE ---
DC Note DC order in place, DCP coordinated by GERARDO Urena today. Patient DC to [facility]. Patient and family aware and agreeable to plan. ANDRES Guthrie aware and nurse to nurse given. Plan: DC to [facility] via w/c today JW
== END 2020-08-10 13:43 | DRG 454 ==
PROVIDERS: Admitting Provider Orthopaedic Surgery Orthopaedic Surgery of the Spine; PCP Internal Medicine; Referring Provider Orthopaedic Surgery Orthopaedic Surgery of the Spine; Visit Provider Orthopaedic Surgery Orthopaedic Surgery of the Spine
PROC: 0SG10AJ Fusion of 2 or more Lumbar Vertebral Joints with Interbody Fusion Device, Posterior Approach, Anterior Column, Open Approach (ICD-10-PCS; principal; 2020-08-07 07:45)
DX: M48.062 Spinal stenosis, lumbar region with neurogenic claudication (principal); Z68.41 Body mass index [BMI] 40.0-44.9, adult; I42.8 Other cardiomyopathies; E66.01 Morbid (severe) obesity due to excess calories; I10 Essential (primary) hypertension; E11.9 Type 2 diabetes mellitus without complications; Z79.4 Long term (current) use of insulin; N40.0 Benign prostatic hyperplasia without lower urinary tract symptoms; G47.30 Sleep apnea, unspecified; Z20.822 Contact with and (suspected) exposure to COVID-19; Z87.891 Personal history of nicotine dependence; M47.27 Other spondylosis with radiculopathy, lumbosacral region; E78.5 Hyperlipidemia, unspecified
CPT/HCPCS: 36415; 72100; 76000; 82962; 85014; 85018; 87635; 97116; 97162; 97165; 97530; 97535; C1776; C9803; C9290; J0131; J0330; J0690; J1100; J1170; J1815; J2405; J2704; J3010

== ENCOUNTER 2022-08-08 11:28 | Day surgery (SDC) | payer MEDICARE, OTHER, SELFPAY ==
[2020-08-07 06:50] VITALS: BMI 42.0
--- NOTE | 2022-08-08 | PATH_ITS ---
[facility] Accession Number: [id number] No. of containers..02 Tissue . 01 Material submitted: . PART A: colon - ASCENDING POLYPS PART B: colon - DESCENDING POLYPS . 01 Diagnosis: A. Ascending Colon Polyps: Tubular adenoma x1. Inflammatory polyp x1. . B. Descending Colon Polyps: Tubular adenoma x1. Hyperplastic polyp x1. MRV 08/15/2022 1545 Local . 01 Electronically signed: . Mariusz Ordaz MD, PhD, Pathologist NPI- [id number] . 01 Gross description: . Part A: ASCENDING POLYPS : Received in formalin are 2 fragment(s) of valentin, soft tissue measuring 0.4 x 0.4 x 0.3 cm to 0.5 x 0.3 x 0.3 cm submitted entirely in 1 cassette(s) Part B: DESCENDING POLYPS: Received in formalin are 2 fragment(s) of valentin, soft tissue measuring 0.4 x 0.4 x 0.2 cm to 0.8 x 0.7 x 0.3 cm submitted entirely in 1 cassette(s) /LOC 08/13/2022 2004 Local . 01 Pathologist provided ICD-10: D12.2, D12.4, K51.40 . 01 CPT . 319778, 902291 Specimen Comment: A courtesy copy of this report has been sent to [phone] Performed at: [facility] [address] [place] [id number] MD Ja Urbina MD Phone: [phone]
[2022-08-08 12:05] VITALS: BP 152/98; PULSE 99; RESP 21; TEMP 35.9; O2SAT 95; BMI 36.9
[2022-08-08] MEDS: LACTATED RINGERS 1,000 ML 42 ML IV (12:27)
--- NOTE | 2022-08-08 12:29 | SUR.PREOP ---
Patient had a low blood sugar this morning and drank a martinez coke at 0730. Stew Andino CRNA aware.
--- NOTE | 2022-08-08 13:16 | PM.HP.1 ---
History of Present Illness History of Present Illness Date Patient Seen: 08/08/22 Time Patient Seen: 13:16 Chief complaint: SD Narrative: Sam a 77-year-old man who presents colonoscopy due to rectal bleeding. He had a colonoscopy in [place] 5 years ago but it is unclear if they reached the cecum. See the office note from June for details. [facility] Medical History Cardiomyopathy Cellulitis (~03/2018) Diabetes Dry skin Dyslipidemia Dyspnea Former smoker HTN (hypertension) Left ventricular hypertrophy Neuropathy NSVT (nonsustained ventricular tachycardia) DIDIER (obstructive sleep apnea) Pancreatitis Pedal edema PVC's (premature ventricular contractions) TIA (transient ischemic attack) Surgical History H/O cardiac radiofrequency ablation (05/17/20) History of loop recorder (~05/17/20) History of vasectomy Hx of bilateral cataract extraction Hx of eye surgery Hx of knee surgery Social History household members: none Smoking Status: Former smoker alcohol intake: current Meds Home Medications and Allergies Home Medications Medication Instructions Recorded Confirmed Type atorvastatin 80 mg tablet 80 mg PO QPM 07/31/20 08/08/22 History cetirizine 10 mg tablet (Aller-Andrzej) 10 mg PO DAILY 07/31/20 08/08/22 History dulaglutide 4.5 mg/0.5 mL 4.5 mg SUBCUT QWEEK 07/31/20 08/08/22 History subcutaneous pen injector (Trulicity) finasteride 5 mg tablet 5 mg PO BEDTIME 07/31/20 08/08/22 History metoprolol succinate 50 mg 50 mg PO BID 07/31/20 08/08/22 History tablet,extended release 24 hr spironolactone 25 mg tablet 12.5 mg PO DAILY 07/31/20 08/08/22 History telmisartan 40 mg tablet (Micardis) 40 mg PO DAILY 07/31/20 08/08/22 History apixaban 5 mg tablet (Eliquis) 5 mg PO BID 06/24/22 08/08/22 History docosahexaenoic acid (dha)-epa 120 1 cap PO DAILY 06/24/22 08/08/22 History mg-180 mg capsule (Fish Oil) insulin aspart U-100 100 unit/mL 20 unit SUBCUT TID 06/24/22 08/08/22 History (3 mL) subcutaneous pen (Novolog FlexPen U-100 Insulin aspart) insulin glargine 100 unit/mL (3 50 unit SUBCUT BID 06/24/22 08/08/22 History mL) subcutaneous pen (Lantus Solostar U-100 Insulin) magnesium 250 mg tablet 250 mg PO DAILY 06/24/22 08/08/22 History metformin 500 mg tablet 500 mg PO BID 06/24/22 08/08/22 History tamsulosin 0.4 mg capsule 0.4 mg PO DAILY 06/24/22 08/08/22 History diphenhydramine HCl 25 mg tablet 25 mg PO TID PRN allergies 08/08/22 08/08/22 History (Benadryl Allergy) Allergies Allergy/AdvReac Type Severity Reaction Status Date / Time adhesive tape Allergy Severe Rash with Verified 08/08/22 12:25 paper tape hydrochlorothiazide AdvReac Severe Pancreatiti Verified 08/08/22 12:25 s Exam Vital Signs (past 8 hours): - 08/08/22 12:05 Temperature 96.7 F L Pulse Rate 99 H Respiratory Rate 21 Blood Pressure 152/98 H Pulse Oximetry 95 Oxygen Delivery Method Room Air Oxygen Delivery Method Room Air Const Nutritional Appearance: obese Assessment & Plan Assessment and plan (1) Rectal bleeding: Status: Acute Plan 77-year-old man for a colonoscopy for rectal bleeding. We reviewed the risks and benefits and he would like to proceed.
--- NOTE | 2022-08-08 14:00 | PM.OP.COLON ---
Operative Date/Time/Diagnoses Date of procedure: 08/08/22 Time of procedure: 14:00 Pre-op diagnosis: Rectal bleeding Post-op diagnosis: same Procedure & Clinicians Study performed: Colonoscopy Same procedure as scheduled: Yes Surgeon: Vicente Barnett Procedure Notes Procedure in detail: Surgeon: Vicente Barnett MD Anesthesia: Stew Garduno CRNA Procedure: The patient was brought to the endoscopy suite, placed in left lateral decubitus position. The patient was connected to monitoring devices. A time-out was performed. Sedation was administered. Once the patient was adequately sedated, a digital rectal exam was performed and was normal. The scope was then inserted and advanced to the cecum where the appendiceal orifice was identified and photographed. The scope was then slowly withdrawn over greater than 6 minutes. The mucosa was thoroughly inspected. The prep was marginal at best. Two 5 mm polyps were removed from the ascending colon with cold snare. They were sent together. Two 5 mm polyps removed from the descending colon with cold snare and sent together. The scope was retroflexed in the rectum. There was a 1 cm polypoid lesion right at the dentate line. It was not removed because it would be painful and we will be addressed in the operating room. The scope was straightened and removed. The patient was awakened and brought to recovery. Scope withdrawal time: 21 minutes Sedation time: 32 minutes EBL: 5 mL Findings: 5 mm polyps in the ascending colon and descending colon and 1 cm polyp at the dentate line Post-procedure Disposition: PACU
[2022-08-08 14:01] VITALS: BP 92/60; PULSE 85; RESP 11; TEMP 36.2; O2SAT 94
[2022-08-08 14:06] VITALS: BP 100/62; PULSE 90; RESP 12; O2SAT 94
[2022-08-08 14:10] VITALS: BP 96/65; PULSE 88; RESP 16; O2SAT 96
[2022-08-08 14:22] VITALS: BP 129/84; PULSE 93; RESP 18; TEMP 36.7; O2SAT 96
== END 2022-08-08 14:51 | disposition home or self-care (01) ==
PROVIDERS: PCP Internal Medicine; Referring Provider Surgery; Visit Provider Surgery
PROC: 0DJD8ZZ Inspection of Lower Intestinal Tract, Via Natural or Artificial Opening Endoscopic (ICD-10-PCS; CPT 45378; principal; 2022-08-08 12:30)
DX: K62.5 Hemorrhage of anus and rectum (principal); D12.2 Benign neoplasm of ascending colon; D12.4 Benign neoplasm of descending colon
CPT/HCPCS: 45385; 82962; J2704

== ENCOUNTER 2022-09-10 11:20 | Day surgery (SDC) | payer MEDICARE, OTHER, SELFPAY ==
[2020-08-07 06:50] VITALS: BMI 42.0
[2022-08-29 14:11] VITALS: BMI 38.1
[2022-09-10] VITALS (7 sets, daily range): BP systolic 103–132; BP diastolic 65–88; PULSE 79–86; RESP 10–19; TEMP 36.3–36.6; O2SAT 94–98; BMI 38.1
--- NOTE | 2022-09-10 | PATH_ITS ---
[facility] Accession Number: [id number] No. of containers..01 Tissue . 01 Material submitted: . rectum - RECTAL POLYP . 01 Diagnosis: Rectal Polyp, Biopsy: Tubulovillous adenoma. No high-grade dysplasia or malignancy. [facility] 09/17/2022 1025 Local . 01 Electronically signed: . Kay Chirinos MD, Pathologist NPI- [id number] . 01 Gross description: . Received in formalin, labeled with the patient's name and rectal polyp, are two pink-valentin polypoid biopsies, 1.7 x 1.2 x 1.0 cm and 1.3 x 1.0 x 0.8 cm, as well as two smaller biopsies averaging 0.4 cm. The two largest biopsies have grossly identifiable resection margins, which are differentially inked black and blue. Both are sectioned. The specimen is submitted entirely in cassettes A1-A3 with the larger biopsies, one per cassette, in cassettes A1 and A2 and the small biopsies together in cassette A3. ([id number]) /[facility] 09/14/2022 1532 Local . 01 Pathologist provided ICD-10: D12.8 . 01 CPT . 686091 Specimen Comment: A courtesy copy of this report has been sent to [phone] Performed at: [facility] [address] [place] [address], [place], [place] [id number] MD Ja Urbina MD Phone: [phone]
[2022-09-10] MEDS: FLEETS ENEMA 1 EACH PR (11:38)
[2022-09-10] MEDS: LACTATED RINGERS 1,000 ML 100 ML IV (11:43)
--- NOTE | 2022-09-10 11:43 | SUR.PREOP ---
See new order for fleets enema confirmed by MD for rectal surgery
--- NOTE | 2022-09-10 12:40 | P.HP_ITS ---
History of Present Illness History of Present Illness Date Patient Seen: 09/10/22 Time Patient Seen: 12:40 Chief complaint: SD Narrative: Sam is a 77-year-old man who had a colonoscopy about a month ago with several polyps removed. They were all tubular adenomas. One polyp was not removed because it was very close with the dentate line and there was a high chance that it would be painful to remove. He comes in today to have this polyp removed. [facility] Medical History (Updated 09/10/22 @ 12:41 by Vicente Barnett MD) Anesthesia Cardiomyopathy Cellulitis (~03/2018) Diabetes Dry skin Dyslipidemia Dyspnea Former smoker Hearing impaired HTN (hypertension) Left ventricular hypertrophy Neuropathy NSVT (nonsustained ventricular tachycardia) DIDIER (obstructive sleep apnea) PAF (paroxysmal atrial fibrillation) Pancreatitis Pedal edema PVC's (premature ventricular contractions) TIA (transient ischemic attack) Surgical History (Updated 08/29/22 @ 14:16 by Nila Villavicencio RN) H/O cardiac radiofrequency ablation (05/17/20) History of fusion of lumbar spine (08/07/20) History of loop recorder (~05/17/20) History of vasectomy Hx of bilateral cataract extraction Hx of colonoscopy (08/08/22) Hx of eye surgery Hx of knee surgery Social History household members: none Smoking Status: Former smoker alcohol intake: current Meds Home Medications and Allergies Home Medications Medication Instructions Recorded Confirmed Type atorvastatin 80 mg tablet 80 mg PO QPM 07/31/20 09/10/22 History cetirizine 10 mg tablet (Aller-Andrzej) 10 mg PO DAILY 07/31/20 09/10/22 History dulaglutide 4.5 mg/0.5 mL 4.5 mg SUBCUT QWEEK 07/31/20 09/10/22 History subcutaneous pen injector (Trulicity) finasteride 5 mg tablet 5 mg PO BEDTIME 07/31/20 09/10/22 History metoprolol succinate 50 mg 50 mg PO BID 07/31/20 09/10/22 History tablet,extended release 24 hr spironolactone 25 mg tablet 12.5 mg PO DAILY 07/31/20 09/10/22 History telmisartan 40 mg tablet (Micardis) 40 mg PO DAILY 07/31/20 09/10/22 History apixaban 5 mg tablet (Eliquis) 5 mg PO BID 06/24/22 09/10/22 History docosahexaenoic acid (dha)-epa 120 1 cap PO DAILY 06/24/22 09/10/22 History mg-180 mg capsule (Fish Oil) insulin aspart U-100 100 unit/mL 20 unit SUBCUT TID 06/24/22 09/10/22 History (3 mL) subcutaneous pen (Novolog FlexPen U-100 Insulin aspart) insulin glargine 100 unit/mL (3 50 unit SUBCUT BID 06/24/22 09/10/22 History mL) subcutaneous pen (Lantus Solostar U-100 Insulin) magnesium 250 mg tablet 250 mg PO DAILY 06/24/22 09/10/22 History metformin 500 mg tablet 500 mg PO BID 06/24/22 09/10/22 History tamsulosin 0.4 mg capsule 0.4 mg PO DAILY 06/24/22 09/10/22 History diphenhydramine HCl 25 mg tablet 25 mg PO TID PRN allergies 08/08/22 09/10/22 History (Benadryl Allergy) Allergies Allergy/AdvReac Type Severity Reaction Status Date / Time adhesive tape Allergy Severe Rash with Verified 09/10/22 12:00 paper tape hydrochlorothiazide AdvReac Severe Pancreatiti Verified 09/10/22 12:00 s Exam Vital Signs (past 8 hours): - 09/10/22 12:20 Temperature 97.8 F Pulse Rate 86 Respiratory Rate 19 Blood Pressure 132/88 Pulse Oximetry 96 Oxygen Delivery Method Room Air Oxygen Delivery Method Room Air Const General: No acute distress Assessment & Plan Assessment and plan (1) Rectal polyp: Status: Acute Plan We reviewed the risks and benefits of transanal excision of rectal polyp and he would like to proceed.
--- NOTE | 2022-09-10 13:28 | SUR.OPER ---
Prone on padded OR bed, head in foam head support, gel chest rolls, gel pad under knees, pillow under lower legs, toes free of pressure, arms secured on padded arm boards at <90 degrees abduction. Safety belt at thigh.
[2022-09-10] MEDS: BUPIVACAINE 0.25% (PF) 30 ML, EPINEPHrine 0.15 MG INJ (13:35)
--- NOTE | 2022-09-10 13:41 | PM.OP.1 ---
Operative Date/Time/Diagnoses Date of procedure: 09/10/22 Time of procedure: 13:41 Pre-op diagnosis: Rectal polyp Post-op diagnosis: same Procedure & Clinicians Procedure: Transanal excision of rectal polyp Same procedure as scheduled: Yes Surgeon: Vicente Barnett Comfort Station Attendant: Fady De Jesus Anesthesia Type: General Operative Notes Procedure in detail: The patient was brought into the operating room and general endotracheal anesthesia was induced. He was then positioned in the prone josephine-knife position. His buttocks were taped apart for exposure. The perineum was prepped and draped with Betadine in the usual fashion. A time-out was performed. A digital rectal exam was performed with a well lubricated finger. Polyp could be palpated in the posterior lower rectum. The retractor was inserted into the and the polyp was visualized. The polyp was about 1.5-2 cm. It was excised at its base taking some normal mucosa along with it. The polyp was rather friable did tear in half during excision. Few bleeders were addressed wound using a 3-0 Vicryl [id number] stitch. The mucosa was then run with a 2-0 chromic stitch to close the wound and for hemostasis. A well lubricated Gelfoam roll was inserted into anal canal. EBL: 10 mL Specimen: Rectal polyp Post-operative Condition: stable Disposition: PACU
--- NOTE | 2022-09-10 14:36 | SUR.PHASEII ---
pt given discharge instructions. Pt states he understands discharge instructions. pt states he is okay and ready to go. Pt to be discharged with his daughters.
== END 2022-09-10 14:42 | disposition home or self-care (01) ==
PROVIDERS: PCP Internal Medicine; Referring Provider Surgery; Visit Provider Surgery
PROC: (CPT 45171; principal; 2022-09-10 13:00)
DX: K62.1 Rectal polyp (principal)
CPT/HCPCS: 45171; J0171; J0330; J1100; J2405; J2704; J3010

== ENCOUNTER → 2022-10-17 09:45 | Outpatient (CLI) | payer MEDICARE, OTHER, SELFPAY ==
[2020-08-07 06:50] VITALS: BMI 42.0
== END ==
PROVIDERS: PCP Internal Medicine; Referring Provider Internal Medicine; Visit Provider Internal Medicine
DX: R06.02 Shortness of breath (principal); Z87.891 Personal history of nicotine dependence; J98.8 Other specified respiratory disorders
CPT/HCPCS: 94060; 94726; 94729

== ENCOUNTER → 2022-11-13 11:31 | Outpatient (CLI) | payer MEDICARE, OTHER, SELFPAY ==
[2020-08-07 06:50] VITALS: BMI 42.0
--- NOTE | 2022-11-13 11:32 | DI.RAD.S_ITS ---
PROCEDURE: XR CHEST 2V INDICATIONS: shortness of breath TECHNIQUE: 2 views of the chest were acquired. COMPARISON: None. FINDINGS: Surgical changes and devices: There is a lead less cardiac monitoring device.. Lungs and pleura: Biapical scars. No pleural effusions or pneumothorax. Mediastinum: Mediastinal contours are normal. Heart size is normal. Bones and chest wall: No suspicious bony abnormalities. Soft tissues appear unremarkable. IMPRESSION: No acute cardiopulmonary abnormality is seen. Dictated by: Patel Conroy M.D. on 11/13/2022 at 11:53 Approved by: Patel Conroy M.D. on 11/13/2022 at 11:54
== END ==
PROVIDERS: PCP Internal Medicine; Referring Provider Internal Medicine Critical Care Medicine; Visit Provider Internal Medicine Critical Care Medicine
DX: R06.02 Shortness of breath (principal); G47.33 Obstructive sleep apnea (adult) (pediatric); I42.9 Cardiomyopathy, unspecified; E66.01 Morbid (severe) obesity due to excess calories; Z68.37 Body mass index [BMI] 37.0-37.9, adult
CPT/HCPCS: 71046; 99214

== ENCOUNTER → 2023-02-20 11:30 | Outpatient (CLI) | payer MEDICARE, OTHER, SELFPAY ==
[2020-08-07 06:50] VITALS: BMI 42.0
== END ==
PROVIDERS: PCP Internal Medicine; Visit Provider Urology
DX: N32.0 Bladder-neck obstruction (principal); N39.0 Urinary tract infection, site not specified; R31.29 Other microscopic hematuria; R35.1 Nocturia; R39.9 Unspecified symptoms and signs involving the genitourinary system; E66.01 Morbid (severe) obesity due to excess calories; Z68.36 Body mass index [BMI] 36.0-36.9, adult; Z87.891 Personal history of nicotine dependence
CPT/HCPCS: 51798; 81002; 87077; 87086; 87186; 99214

== ENCOUNTER → 2023-04-10 14:41 | Outpatient (CLI) | payer MEDICARE, OTHER, SELFPAY ==
[2020-08-07 06:50] VITALS: BMI 42.0
== END ==
PROVIDERS: PCP Internal Medicine; Visit Provider Urology
DX: N30.01 Acute cystitis with hematuria (principal); N32.0 Bladder-neck obstruction; R35.1 Nocturia; R39.9 Unspecified symptoms and signs involving the genitourinary system; Z87.891 Personal history of nicotine dependence
CPT/HCPCS: 51798; 81002; 87077; 87086; 87186; 99214

== ENCOUNTER → 2023-05-22 10:48 | Outpatient (CLI) | payer MEDICARE, OTHER, SELFPAY ==
[2020-08-07 06:50] VITALS: BMI 42.0
== END ==
PROVIDERS: PCP Internal Medicine; Visit Provider Urology
DX: N30.01 Acute cystitis with hematuria (principal); N32.0 Bladder-neck obstruction; R33.9 Retention of urine, unspecified; R35.1 Nocturia; R39.9 Unspecified symptoms and signs involving the genitourinary system; Z87.891 Personal history of nicotine dependence
CPT/HCPCS: 51798; 81002; 87077; 87086; 87186; 99214

== ENCOUNTER 2023-07-01 06:20 | Day surgery (SDC) | payer MEDICARE, OTHER, SELFPAY ==
[2020-08-07 06:50] VITALS: BMI 42.0
[2023-06-26 08:13] VITALS: BMI 37.4
--- NOTE | 2023-07-01 | PATH_ITS ---
[facility] Accession Number: [id number] No. of containers..01 Tissue . 01 Material submitted: . foreskin - FORESKIN . 01 Diagnosis: FORESKIN, BIOPSY: Fragment of foreskin with mild inflammation and fibrosis. MRV 07/08/2023 1629 Local . 01 Electronically signed: . Sherie Woodard MD, Dermatopathologist NPI- [id number] . 01 Gross description: . Received in formalin with two identifiers and foreskin, is a valentin, wrinkled, irregular fragment of skin measuring 6.2 x 4.7 x 0.5 cm. The skin surface is valentin, wrinkled, and unremarkable. The margin is inked blue, and sectioning reveals a valentin soft cut surface. [employer] sections are submitted in A1. ([id number]) /MRV 07/02/2023 1928 Local . 01 Pathologist provided ICD-10: N47.1 . 01 CPT . 920198 Specimen Comment: A courtesy copy of this report has been sent to [phone] Performed at: [facility] [address] [place] [address], [place], [place] [id number] MD Ja Urbina MD Phone: [phone]
[2023-07-01] MEDS: LACTATED RINGERS 1,000 ML 42 ML IV ×2 (07:00→08:36)
[2023-07-01] MEDS: ACETAMINOPHEN 325 MG TABLET 975 MG PO (07:06)
[2023-07-01 07:07] VITALS: BP 128/75; PULSE 102; RESP 19; TEMP 36.4; O2SAT 98; BMI 37.4
--- NOTE | 2023-07-01 07:29 | SUR.OPER ---
Supine on padded OR bed, head on pillow, arms secured on padded arm boards at <90 degrees abduction, legs uncrossed, safety belt at thigh, tape over blanket over lower legs.
--- NOTE | 2023-07-01 07:43 | PM.PREOP ---
Pre-operative Note COVID-19 COVID-19 status: Not tested Interval Note History & Physical reviewed/Exam performed by Physician: Yes Changes to H&P: No
[2023-07-01] MEDS: CEFAZOLIN VIAL 3 GM in SODIUM CHLORIDE 0.9% 100 ML IV (07:58)
[2023-07-01] MEDS: BUPIVACAINE 0.25% (PF) VIAL 30 ML INJ (08:13)
[2023-07-01] MEDS: BACITRACIN 28 GM OINT 1 APPLIC TOP (08:14)
[2023-07-01 09:06] VITALS: BP 113/59; PULSE 97; RESP 20; TEMP 36.5; O2SAT 95
[2023-07-01 09:11] VITALS: BP 99/56; PULSE 98; RESP 19; TEMP 36.4; O2SAT 96
--- NOTE | 2023-07-01 09:13 | PM.OP.1 ---
Procedure & Clinicians Procedure: Circumcision Same procedure as scheduled: Yes Indications: 78-year-old male with phimosis and history of balanitis who presents for circumcision. Surgeon: Beni William Click Yes if Unassisted: Yes Anesthesia Type: General Operative Notes Findings: Findings: Patient with phimosis. No evidence of balanitis today testes, epididymis, cord structures are normal. In the intertriginous folds there is evidence of some perhaps monilial infestation. Otherwise normal anatomy is observed. Closure Type: primary Specimen(s): other (Foreskin) Estimated Blood Loss (mL): 5 Blood products transfused: none Procedure in detail: Procedure in detail: After informed consent was obtained, the patient was identified and brought to the operating room where he was placed in a supine position on the table. Once there anesthesia was induced and maintained. After inducing an adequate level of anesthesia the patient was shaved, prepped, draped for circumcision in his sterile fashion. After prepping, draping, ensuring an adequate of anesthesia, time-out and administration of IV antibiotics the lines of incision were marked on the shaft skin and in the coronal sulcus. This was after the phimosis was dilated in the foreskin could be retracted. Once the foreskin was retracted it was cleansed with Betadine and is a few adhesions on the left dorsal aspect of the foreskin and berumen were released. The subcoronal incision was made circumferentially on the previously marked lines this was the foreskin was then reduced and the shaft skin was incised. The sleeve of tissue was then excised using sharp blunt and electrocautery dissection. Points of bleeding were then controlled. Skin edges were reapproximated with interrupted 2-0 chromic gut suture. Bacitracin was applied after the wound was infiltrated with 0.25% plain Marcaine. The juanjose dressing was then applied. At this point the patient was awakened transferred to the postanesthesia care unit for recovery. The patient tolerated procedure well and there were no complications. Complications: none Post-operative Condition: stable Disposition: PACU Plan for aftercare: Patient to be discharged to home after recovery to follow up in my office in approximately 10-14 days.
[2023-07-01 09:17] VITALS: BP 97/59; PULSE 95; RESP 16; TEMP 36.4; O2SAT 95
[2023-07-01 09:23] VITALS: BP 105/62; PULSE 90; RESP 21; TEMP 36.4; O2SAT 95
[2023-07-01 10:05] VITALS: BP 132/88; PULSE 94; RESP 16; O2SAT 97
== END 2023-07-01 10:05 | disposition home or self-care (01) ==
PROVIDERS: PCP Internal Medicine; Referring Provider Urology; Visit Provider Urology
PROC: (CPT 54161; principal; 2023-07-01 07:45)
DX: N47.1 Phimosis (principal); N39.0 Urinary tract infection, site not specified
CPT/HCPCS: 54161; J0330; J0690; J2405; J2704; J3010

== ENCOUNTER → 2023-07-16 11:32 | Outpatient (CLI) | payer MEDICARE, OTHER, SELFPAY ==
[2020-08-07 06:50] VITALS: BMI 42.0
== END ==
PROVIDERS: PCP Internal Medicine; Visit Provider Urology
DX: N47.1 Phimosis (principal); R33.9 Retention of urine, unspecified; R39.9 Unspecified symptoms and signs involving the genitourinary system; Z98.890 Other specified postprocedural states
CPT/HCPCS: 51798; 81002; 87077; 87086; 87186

== ENCOUNTER → 2023-08-14 09:09 | Outpatient (CLI) | payer MEDICARE, OTHER, SELFPAY ==
[2020-08-07 06:50] VITALS: BMI 42.0
== END ==
LOC: RESP 09:10
PROVIDERS: PCP Internal Medicine; Referring Provider Nurse Practitioner; Visit Provider Nurse Practitioner
DX: Z79.899 Other long term (current) drug therapy (principal); Z87.891 Personal history of nicotine dependence; R94.2 Abnormal results of pulmonary function studies
CPT/HCPCS: 94010; 94729

== ENCOUNTER → 2023-08-28 09:23 | Outpatient (CLI) | payer MEDICARE, OTHER, SELFPAY ==
[2020-08-07 06:50] VITALS: BMI 42.0
== END ==
PROVIDERS: PCP Internal Medicine; Visit Provider Urology
DX: R31.29 Other microscopic hematuria (principal)
CPT/HCPCS: 87077; 87086

== ENCOUNTER → 2024-01-01 10:51 | Outpatient (CLI) | payer MEDICARE, OTHER, SELFPAY ==
[2020-08-07 06:50] VITALS: BMI 42.0
== END ==
PROVIDERS: PCP Internal Medicine; Visit Provider Urology
DX: N39.0 Urinary tract infection, site not specified (principal); Z98.890 Other specified postprocedural states; B37.2 Candidiasis of skin and nail; Z87.891 Personal history of nicotine dependence; R31.29 Other microscopic hematuria; R82.81 Pyuria; Z68.36 Body mass index [BMI] 36.0-36.9, adult
CPT/HCPCS: 81002; 87077; 87086; 87186; 99214

== ENCOUNTER → 2024-03-09 09:09 | Outpatient (CLI) | payer MEDICARE, OTHER, SELFPAY ==
[2020-08-07 06:50] VITALS: BMI 42.0
== END ==
PROVIDERS: PCP Internal Medicine; Referring Provider Podiatrist; Visit Provider Surgery
DX: E11.621 Type 2 diabetes mellitus with foot ulcer (principal); L97.512 Non-pressure chronic ulcer of other part of right foot with fat layer exposed; L84 Corns and callosities; E11.42 Type 2 diabetes mellitus with diabetic polyneuropathy
CPT/HCPCS: 11042; 87070; 87075; 87205; 99203; 99213

== ENCOUNTER → 2024-03-16 10:54 | Outpatient (CLI) | payer MEDICARE, OTHER, SELFPAY ==
[2020-08-07 06:50] VITALS: BMI 42.0
== END ==
LOC: WC 10:55
PROVIDERS: PCP Internal Medicine; Referring Provider Podiatrist; Visit Provider Surgery
DX: Z86.31 Personal history of diabetic foot ulcer (principal); E11.42 Type 2 diabetes mellitus with diabetic polyneuropathy
CPT/HCPCS: 99212; 99213

== ENCOUNTER → 2024-07-01 11:19 | Outpatient (CLI) | payer MEDICARE, OTHER, SELFPAY ==
[2020-08-07 06:50] VITALS: BMI 42.0
== END ==
PROVIDERS: Visit Provider Urology
DX: R33.9 Retention of urine, unspecified (principal)
CPT/HCPCS: 51798; 81002; 87077; 87086; 87186; 99214